=== PATIENT | female | born 1955 | race Caucasian/White ===

== ENCOUNTER 2024-12-15 17:56 | Observation (INO) | payer BC, SELFPAY ==
[2024-12-15] VITALS (9 sets, daily range): BP systolic 100–152; BP diastolic 55–83; PULSE 66–96; RESP 16–26; TEMP 36.6–36.8; O2SAT 97–100; BMI 24.3
--- NOTE | ~2024-12-15 | XR_ITS ---
XR chest 1V portable Ordering provider: Dameon Pitt III, DO History: 69 years Female with . sob . Comparison: None. FINDINGS: MEDIASTINUM: The cardiac silhouette is not enlarged. Congested joanna. LUNGS: No effusions or pneumothorax. Opacification the left lung base suggestive of atelectasis versu s pneumonia. Underlying fibrotic changes. OTHER: No free air under the diaphragm. Severe osteoarthritic changes of the right shoulder. Degenera tive spine. IMPRESSION: Left basilar atelectasis versus pneumonia. Reviewed, dictated and finalized at location A.
--- NOTE | ~2024-12-15 | CT_ITS ---
CT diagnostic chest wo con Ordering provider: Earl Rodriguez MD History: 69 years Female with . Eval PNA . Comparison: None. Technique: CT chest without IV contrast. Radiation reduction technique utilized.The dose-length product was 165.21 mGy-cm. FINDINGS: VISUALIZED THORACIC INLET: Normal. MEDIASTINUM: Aorta/coronary arteries: Mild atheromatous disease. Ascending aorta measures 4 seen. Heart/other: The heart is slightly enlarged. Lymph nodes: Precarinal lymph nodes are seen with the largest measures 1.6 cm. LUNGS: Emphysematous changes seen in the upper and lower lobes. Superimpose pneumonitis in the lower lobes is not excluded. No pulmonary nodules or masses. No effusions. No pneumothorax. VISUALIZED UPPER ABDOMEN: Adenoma in the left adrenal gland is seen measuring 1.1 cm. No follow-up ad vised unless clinically warranted. Thickened wall of the stomach. Otherwise, the visualized upper abd omen is normal. MUSCULOSKELETAL: Soft tissues: The superficial soft tissues are normal. Bones: Dextroscoliosis. Age appropriate degenerative changes of the spine. Healing rib fractures are seen in the right lower thorax. Severe osteoarthritic changes of the right shoulder. IMPRESSION: 1. Fibrotic changes of the lungs in the lower and upper lobes. Possibility of superimposed pneumonit is is not excluded in the lower lobes. Clinical correlation and follow-up advised. 2. Mediastinal lymphadenopathy. 3. Healing fractures in the right lower thorax. Reviewed, dictated and finalized at location A. IMPRESSION: 1. Fibrotic changes of the lungs in the lower and upper lobes. Possibility of superimposed pneumonitis is not excluded in the lower lobes. Clinical correlati on and follow-up advised. 2. Mediastinal lymphadenopathy. 3. Healing fractures in the right lower thorax.
--- NOTE | 2024-12-15 18:00 | ECG_ITS ---
Test Date: 2024-12-15 18:12:45 Measurements Intervals [place] Rate: 65 P: 38 MO: 196 QRS: -31 QRSD: 102 T: -3 QT: 428 QTc: 446 Interpretive Statements SINUS RHYTHM LEFT AXIS DEVIATION LEFT VENTRICULAR HYPERTROPHY BORDERLINE T WAVE ABNORMALITY- INFERIOR LEADS BASELINE ARTIFACT- I, II, AVR, AVL, AVF, V1-V6 BORDERLINE ECG No previous ECG available for comparison Electronically Signed On 12-15-2024 20:16:01 CDT by Nile Brandon D.O.
[2024-12-15 18:21] LABS: Basophils Absolute Auto 0.1 K/mm3 (0.0-0.1); Basophils Percent Auto 0.3 % (0.2-1.2); Hematocrit 33.8 % (37.0-47.0); Hemoglobin 10.6 g/dL (12.0-15.0); Immature Granulocyte Absolute 0.05 K/mm3 (0.00-0.031); Immature Granulocyte Percent A 0.3 % (0-0.5); Lymphocytes Absolute Auto 2.12 K/mm3 (0.9-3.2); Lymphocytes Percent Auto 14.7 % (18.3-44.2); Mean Corpuscular HGB Conc 31.4 g/dl (32-36); Mean Corpuscular Hemoglobin 31.3 pg (26-34); Mean Corpuscular Volume 99.7 fl (80-100); Mean Platelet Volume 10.4 fl (7.4-10.4); Monocytes Absolute Auto 1.3 K/mm3 (0.1-0.6); Monocytes Percent Auto 9.3 % (2.6-8.5); Neutrophils Absolute Auto 10.8 K/mm3 (1.3-6.7); Neutrophils Percent Auto 75.4 % (45.5-73.1); Platelet Count Result 290 k/mm3 (150-375); Red Blood Count 3.39 M/mm3 (4.2-5.4); Red Cell Distribution Width 12.5 % (11.5-14.5); White Blood Count 14.4 K/mm3 (4.5-10.0)
[2024-12-15 18:28] LABS: Alanine Aminotransferase 18 U/L (6-35); Albumin Level 4.5 g/dL (3.5-5.1); Alkaline Phosphatase 77 U/L (38-126); Anion Gap 12 mmol/L (4-12); Aspartate Amino Transferase 33 U/L (14-36); Bilirubin,Total 1.1 mg/dL (0.2-1.3); Blood Urea Nitrogen 16 mg/dL (7-17); Calcium 9.1 mg/dL (8.4-10.2); Carbon Dioxide 25 mmol/L (22-30); Chloride 97 mmol/L (98-107); Estimated CRCL calculation 52 ml/min; Estimated Glomerular Filt Rate 59; Glucose 109 mg/dL (65-110); Potassium 3.8 mmol/L (3.4-5.0); Sodium 134 mmol/L (137-145); Total Protein 8.7 g/dL (6.3-8.2)
--- OUTSIDE RECORDS SUMMARY | 2024-12-15 18:28 | XMS_ITS | Encounter Summary ---
Author Organization [facility] Address [address] [place] [address] Phone Care Team Providers Care Business Records Manager Name Role Phone Butch Linnea KOO Primary Care Provider [phone] Encounter Details Date Type Department Care Team (Late st Contact Info) Description 02/18/2024 Refill [facility] [address] [place] [address] Karri Womack MD [address] [place] [address] Social History Tobacco Use Types Packs/Day Years Used Date Smoking Tobacco: Every Day Cigarettes 1 20 Passive Smoke Exposure: Never Smokeless Tobacco: Never Alcohol Use Standard Drinks/Week Comments Yes 5 (1 standard drink = 0.6 oz pur e alcohol) Comments Unknown Sex and Gender Information Value Date Recorded Sex Assigned at Not on file Legal Sex Female 8:22 AM [employer] Gender Identity Not on file Sexual Orientation Not on file documented as of this encounter Miscellaneous Notes * Telephone Encounter - Karri Womack MD - 02/18/2024 1:17 PM CDT Enbrel Rx sent. * Telephone Encounter - Lyssa Aguayo - 02/18/2024 11:22 AM CDT Enbrel was approved by [employer] from 01/19/24-08/16/24. [employer] Insurance Auth # [id number] . Added information to referral entry. Added approval dates to med list. Started new postponed message. Called pt to discuss approval. Gave phone number for [facility] and instructions on putting medicationin door of refrigerator when received. Pt will call for appt or bring injection to her appt next week if she has it. Let pt know that pharmacy can help set her up with a copay card if she needs it. Medication queued up for provider to sign * Telephone Encounter - Lyssa Aguayo - 02/18/2024 9:49 AM CDT Submitted PA request for ENBREL through Cover My Meds [place]: [email or web address] Questions populated and submitted Pending response * Telephone Encounter - Karri Womack MD - 02/18/2024 9:27 AM CDT Please get PA for Enbrel (or any other TNFi such as adalimumab). Diagnosis: Rheumatoid arthritis Current treatment: Methotrexate, narcotic pain medications Previous treatments: Hydroxychloroquine, prednisone. documented in this encounter Plan of Treatment Not on file documented as of this encounter Visit Diagnoses Diagnosis Rheumatoid arthritis involving multiple sites with positive rheumatoid factor ([facility])- Primary documented in this encounter Care Teams Business Records Manager Relationship Specialty Start Date End Date Linnea Rae APRN FORMERLY [facility], [facility], [facility] [address] [place] [address] PCP - General Family Medicine 09/13/23 documented as of this encounter
--- OUTSIDE RECORDS SUMMARY | 2024-12-15 18:28 | XMS_ITS | Referral Summary ---
Author Organization [address] Address [address] [place] [id number] Care Team Providers Care Meal Grinder Tender Name Role Phone Unknown, Notinfile Primary Care Provider Unavail able Encounters Date Type Department Care Team Description 12/15/2024 5:00 PM CDT Office Visit [facility] at [address] [address] Jenelle Lazaro NP Chest congestion (Primary Dx) from Last 3 Months Allergies Active Allergy Reactions Criticality Noted Date Comments Latex Hives,Rash High 02/18/2024 Medications albuterol HFA (PROVENTIL HFA,VENTOLIN HFA,PROAIR HFA) 90 mcg/actuation inhaler 5 Active Airsupra 90-80 mcg/actuation HFA aerosol inhaler 2 PUFFS EVERY 4 HOURS (MAX OF 12 PUFFS IN 24 HOURS) 5 Active aspirin 81 mg chewable tablet Take 1 tablet (81 mg total) by mouth daily Active atorvastatin (LIPITOR) 40 mg tablet Take 1 tablet (40 mg total) by mouth nightly Active Breztri Aerosphere 160-9-4.8 mcg/actuation inhaler 2 PUFFS TWICE DAILY 5 Active busPIRone (BUSPAR) 10 mg tablet Take 1 tablet (10 mg total) by mouth daily 5 Active ergocalciferol (VITAMIN D) 50,000 unit capsule Take 1.25 mg by mouth once a week Active cholecalciferol (VITAMIN D-3) 50,000 unit capsule Take 1 capsule (50,000 Units total) by mouth 4 Active estradioL (ESTRACE) 1 mg tablet Take 1 tablet (1 mg total) by mouth Active estrogens, conjugated, (PREMARIN) 0.3 mg tablet Take 1 tablet (0.3 mg total) by mouth daily Active EnbreL Mini 50 mg/mL (1 mL) cartridge INJECT 50 MG UNDER THE SKIN EVERY 7 DAYS 5 Active gabapentin (NEURONTIN) 300 mg capsule Take 1 capsule (300 mg total) by mouth 3 (three) times a day 3 Active tiZANidine (ZANAFLEX) 4 mg tablet Take 1 tablet (4 mg total) by mouth nightly Active levothyroxine (SYNTHROID) 175 mcg tablet Take 1 tablet (175 mcg total) by mouth real estate loan officer before breakfast 4 Active hydroCHLOROthia zide (HYDRODIURIL) 25 mg tablet Take 1 tablet (25 mg total) by mouth real estate loan officer before breakfast 4 Active sucralfate (CARAFATE) 1 gram tablet Take 1 tablet (1 g total) by mouth 2 (two) times a day 5 Active metoprolol (LOPRESSOR) 100 mg tablet Take 1.5 tablets (150 mg total) by mouth 2 (two) times a day Active losartan (COZAAR) 25 mg tablet Take 2 tablets (50 mg total) by mouth 2 (two) times a day 4 Active furosemide (LASIX) 20 mg tablet Take 0.5 tablets (10 mg total) by mouth daily Active Active Problems No known active problems Social History Tobacco Use Types Packs/Day Years Used Date Smoking Tobacco: Never Assessed Comments Unknown Sex and Gender Information Value Date Recorded Sex Assigned at Not on file Legal Sex Female 3:31 PM CDT Gender Identity Not on file Sexual Orientation Not on file Last Filed Vital Signs Vital Sign Reading Time Taken Comments Blood Pressure 133/72 12/15/2024 5:19 PM CDT Pulse 74 12/15/2024 5:19 PM CDT Temperature 36.9 C (98.4 F) 12/15/2024 5:19 PM CDT Respiratory Rate 20 12/15/2024 5:19 PM CDT Oxygen Saturation 98% 12/15/2024 5:19 PM CDT Inhaled Oxygen Concentration - - Weight - - Height - - Body Mass Index - - Plan of Treatment Not on file Procedures Procedure Name Priority Date/Time Associated Diagnosis Comments POC INFLUENZA A/B, COVID-19 ANTIGEN Routine 12/15/2024 5:38 PM CDT Chest congestion from Last 3 Months Results * POC Influenza A/B, COVID-19 antigen (12/15/2024 5:38 PM CDT) Influenza A Ag, POC Negative Negative [facility] Influenza B Ag, POC Negative Negative [facility] COVID-19 Ag POC Presumptive Negative Presumptive Negative, Invalid [facility] Nasal 12/15/2024 5:38 PM CDT us Jenelle Lazaro NP POINT OF CARE TEST ORDERABLES F inal Result [facility] [address] [place] [address], [facility] from Last 3 Months Insurance [employer] ACCESS Care Teams Meal Grinder Tender Relationship Specialty Start Date End Date Unknown, Notinfile PCP - General 12/15/24
--- OUTSIDE RECORDS SUMMARY | 2024-12-15 18:28 | XMS_ITS | Clinical Summary ---
Author Organization [address] Address [address] [place] [id number] Care Team Providers Care Energy Project Manager Name Role Phone Unknown, Notinfile Primary Care Provider Unavail able Allergies Active Allergy Reactions Criticality Noted Date [...] 1 tablet (175 mcg total) by mouth pet food deboner before breakfast 4 Active hydroCHLOROthia zide (HYDRODIURIL) 25 mg tablet Take 1 tablet (25 mg total) by mouth pet food deboner before breakfast 4 Active sucralfate (CARAFATE) 1 [...] Active Active Problems No known active problems Encounters Date Type Department Care Team Description 12/15/2024 5:00 PM CDT Office Visit [facility] at [address] [address] Jenelle Lazaro NP Chest congestion (Primary Dx) from Last 3 Months Social History Tobacco Use Types Packs/Day Years Used Date Smoking Tobacco: Never Assessed Comments Unknown Sex and Gender Information Value Date Recorded Sex Assigned at Not on file Legal Sex Female 3:31 PM CDT Gender Identity Not on file Sexual Orientation Not on file Obstetrics History Last Filed Vital Signs Vital Sign Reading [...] Mass Index - - Plan of Treatment Health Maintenance Due Date Last Done Comments Colon Cancer Screening-Colonoscopy 1955 Depression Screening 1955 Fall Risk Assessment 1955 Hepatitis C Screening 1955 DTaP/Tdap/Td Vaccine (1 - Tdap) 02/10/1968 Hepatitis B Screening 1975 Pneumococcal vaccine 65+ (1 of 1 - PCV) 2007 Zoster Vaccine (1 of 2) 2007 Osteoporosis Screening-Bone Density Scan 12/26/2020 12/26/2018 Breast Cancer Screening-Mammogram 05/25/2021 020, 05/25/2020 Well Visit 65+ 2022 Influenza Vaccine (Season Ended) 2025 08/17/19 17 Procedures Procedure Name Priority Date/Time Associated Diagnosis Comments POC INFLUENZA A/B, COVID-19 ANTIGEN Routine 12/15/2024 5:38 PM CDT Chest congestion from Last 3 Months Results * POC Influenza A/B, COVID-19 antigen (12/15/2024 5:38 PM CDT) Influenza A Ag, POC Negative Negative [facility] Influenza B Ag, POC Negative Negative [facility] COVID-19 Ag POC Presumptive Negative Presumptive Negative, Invalid [facility] Nasal 12/15/2024 5:38 PM CDT us Jenelle Lazaro NP POINT OF CARE TEST ORDERABLES F inal Result [facility] [address] [place] [address], [facility] from Last 3 Months Insurance [employer] Care Teams Energy Project Manager Relationship Specialty Start Date End Date Unknown, Notinfile PCP - General 12/15/24
--- OUTSIDE RECORDS SUMMARY | 2024-12-15 18:28 | XMS_ITS ---
Author Organization [facility] Care Team Providers Care Army Ranger Name Role Phone PRANAY HAYS Unavailable Unavailable GORGE PLATT Unavailable Unavailable DANUTA BLAND Unavailable Unavailable Allergies and adverse reactions No Known Allergies Care Team Name Role Address Phone Organization Dates DANUTA BLAND PCP [address] [facility] [address], [place], [address], [place] (Office): [facility] 11/04/2018 - 11/25/2018 PRANAY HAYS [address] [place], [address], [facility] (Office): : [facility] 11/04/2018 - 11/25/2018 GORGE PLATT [address] [place], [address], [facility] (Office): : [facility] 11/04/2018 - 11/25/2018 Immunizations Immunization Status Vaccine Details Vaccine Code CodeSystem Date Notes Influenza cancelled Influenza, high-dose, split virus, quadrivalent, injectable, preservative free 197 CVX created date: 11/07/2018 consent date: 11/07/2018 Pneumovax Dose 1 cancelled cre ated date: 11/07/2018 consent date: 11/07/2018 Eligible but prefers to not get this vaccine Pneumovax 13 (PCV13) cancelled created date: 11/07/2018 consent date: 11/07/2018 Eligible but prefers to not get this vaccine Mental Status Section Date Assessment Total Score Description 11/25/2018 BIMS 13 cognitively int act CAM 0 No delirium ind icated PHQ-9 03 minimal depress ion 11/17/2018 BIMS 15 cognitively int act CAM 0 No delirium ind icated PHQ-9 05 mild depression Problems Problem # Description Date of onset Resolved Date Code CodeSystem Concern Status 1 DIFFICULTY IN WALKIN G, NOT ELSEWHERE CLASSIFIED [address] active 2 DISPLACED INTERTROCHANTERIC FRACTURE OF LEFT FEMUR, SUBSEQUENT ENCOUNTER FOR CLOSED FRACTURE WITH ROUTINE HEALING [address] active 3 ESSENTIAL (PRIMARY) HYPERTENSION [address] active 4 GASTRO-ESOPHAGEAL REFLUX DISEASE WITHOUT ESOPHAGITIS [address] active 5 HYPOTHYROIDISM, UNSPECIFIED [address] active 6 INSOMNIA, UNSPECIFIED [address] active 7 MUSCLE WEAKNESS (GENERALIZED) [address] active 8 OBSTRUCTIVE SLEEP APNEA (ADULT) (PEDIATRIC) [address] active 9 PAIN IN LEFT HIP [address] active 10 PAIN IN LEFT THIGH [address] active Reason for Referral No Reasons for Referral Entered Social History Social History Observation Description Start Date End Date Code Code System Current Smoking Status Tobacco smoking consumption unknown 360399555 SNOMED CT Sex Assigned At Female 1955 14258-0 [facility] Gender Identity Vital Signs Code Code System Vitals Name Values and Units Timing Information 9279-1 LOINC Respiratory Rate Value=16.0 Units=/m in 11/25/2018 8462-4 LOINC Blood Pressure-Diastolic Value=89 Un its=mmHg 11/25/2018 8480-6 LOINC Blood Pressure-Systolic Avkqx=745 Un its=mmHg 11/25/2018 8310-5 LOINC Body Temperature Value=98.2 Units= F 11/25/2018 8867-4 [facility] Heart rate Value=70.0 Units=/min 42726-6 [facility] Pain Level Value=1.0 11/25/2018 06438-6 [facility] O2 % BldC Oximetry Value=97.0 Units= % 11/18/2018 55751-5 LOINC Weight Veoha=025.0 Units=Lbs 02/2019 8302-2 [facility] Height Value=67.5 Units=Inches 11/04/2018
--- OUTSIDE RECORDS SUMMARY | 2024-12-15 18:28 | XMS_ITS | Encounter Summary ---
Author Organization [facility] Healthcare Address [address] [place] [address] Care Team Providers Care Fibre Optic Cable Splicer Name Role Phone Unknown, Notinfile Primary Care Provider Unavail able Reason for Visit * Reason Comments chest congestion Cough, NVD, pain in pancreas, fatigue for four days. Encounter Details Date Type Department Care Team (Late st Contact Info) Description 12/15/2024 5:00 PM CDT Office Visit [facility] at [address] [address] Jenelle Lazaro, CARMINE [address] [place] [address] [address] [place] [address] Chest congestion (Primary Dx) Social History Tobacco Use Types Packs/Day Years Used Date Smoking Tobacco: Never Assessed Comments Unknown Sex and Gender Information Value Date Recorded Sex Assigned at Not on file Legal Sex Female 3:31 PM CDT Gender Identity Not on file Sexual Orientation Not on file documented as of this encounter Last Filed Vital Signs Vital Sign Reading Time Taken Comments Blood Pressure 133/72 12/15/2024 5:19 PM CDT Pulse 74 12/15/2024 5:19 PM CDT Temperature 36.9 C (98.4 F) 12/15/2024 5:19 PM CDT Respiratory Rate 20 12/15/2024 5:19 PM CDT Oxygen Saturation 98% 12/15/2024 5:19 PM CDT Inhaled Oxygen Concentration - - Weight - - Height - - Body Mass Index - - documented in this encounter Plan of Treatment Not on file documented as of this encounter Procedures Procedure Name Priority Date/Time Associated Diagnosis Comments POC INFLUENZA A/B, COVID-19 ANTIGEN Routine 12/15/2024 5:38 PM CDT Chest congestion documented in this encounter Results * POC Influenza A/B, COVID-19 antigen (12/15/2024 5:38 PM CDT) Influenza A Ag, POC Negative Negative [facility] Influenza B Ag, POC Negative Negative [facility] COVID-19 Ag POC Presumptive Negative Presumptive Negative, Invalid [facility] Nasal 12/15/2024 5:38 PM CDT Jenelle Lazaro NP POINT OF CARE TEST ORDERABLES F inal Result [facility] [address] documented in this encounter Visit Diagnoses Diagnosis Chest congestion- Primary Other symptoms involving respiratory system and chest documented in this encounter Historical Medications * This list may reflect changes made after this encounter. furosemide (LASIX) 20 mg tablet Take 0.5 tablets (10 mg total) by mouth daily losartan (COZAAR) 25 mg tablet Take 2 tablets (50 mg total) by mouth 2 (two) times a day 01/22/2024 metoprolol (LOPRESSOR) 100 mg tablet Take 1.5 tablets (150 mg total) by mouth 2 (two) times a day sucralfate (CARAFATE) 1 gram tablet Take 1 tablet (1 g total) by mouth 2 (two) times a day 11/25/2024 hydroCHLOROthiaz lisa (HYDRODIURIL) 25 mg tablet Take 1 tablet (25 mg total) by mouth range rider before breakfast 01/22/2024 levothyroxine (SYNTHROID) 175 mcg tablet Take 1 tablet (175 mcg total) by mouth range rider before breakfast 01/22/2024 tiZANidine (ZANAFLEX) 4 mg tablet Take 1 tablet (4 mg total) by mouth nightly gabapentin (NEURONTIN) 300 mg capsule Take 1 capsule (300 mg total) by mouth 3 (three) times a day 03/27/2023 EnbreL Mini 50 mg/mL (1 mL) cartridge INJECT 50 MG UNDER THE SKIN EVERY 7 DAYS 10/26/2024 estrogens, conjugated, (PREMARIN) 0.3 mg tablet Take 1 tablet (0.3 mg total) by mouth daily estradioL (ESTRACE) 1 mg tablet Take 1 tablet (1 mg total) by mouth cholecalciferol (VITAMIN D-3) 50,000 unit capsule Take 1 capsule (50,000 Units total) by mouth 01/22/2024 ergocalciferol (VITAMIN D) 50,000 unit capsule Take 1.25 mg by mouth once a week busPIRone (BUSPAR) 10 mg tablet Take 1 tablet (10 mg total) by mouth daily 11/25/2024 Breztri Aerosphere 160-9-4.8 mcg/actuation inhaler 2 PUFFS TWICE DAILY 10/28/2024 atorvastatin (LIPITOR) 40 mg tablet Take 1 tablet (40 mg total) by mouth nightly aspirin 81 mg chewable tablet Take 1 tablet (81 mg total) by mouth daily Airsupra 90-80 mcg/actuation HFA aerosol inhaler 2 PUFFS EVERY 4 HOURS (MAX OF 12 PUFFS IN 24 HOURS) 10/28/2024 albuterol HFA (PROVENTIL HFA,VENTOLIN HFA,PROAIR HFA) 90 mcg/actuation inhaler 10/07/2024 added in this encounter Care Teams Fibre Optic Cable Splicer Relationship Specialty Start Date End Date Unknown, Notinfile PCP - General 12/15/24 documented as of this encounter
--- OUTSIDE RECORDS SUMMARY | 2024-12-15 18:28 | XMS_ITS | Clinical Summary ---
Author Organization [facility] Address [address] [place] [address] Phone Care Team Providers Care Loss Prevention Investigator Name Role Phone Butch Linnea KOO Primary Care Provider [phone] Allergies Active Allergy Reactions Criticality Noted Date Comments Latex Hives,Rash High 02/18/2024 Medications aspirin enteric coated 81 mg tablet, delayed release Take 81 mg by mouth every day 11/20/2023 Active buprenorphine HCL (SUBUTEX) [address] 8 mg under the tongue 2 (two) times daily Active cholecalciferol (VITAMIN D3) 50,000 unit capsule Take 50,000 Units by mouth 01/22/2024 Active estradioL (ESTRACE) 1 mg tablet Take 1 mg by mouth every day Active gabapentin (NEURONTIN) 300 mg capsule Take 300 mg by mouth 3 (three) times daily Active hydroCHLOROthia zide 25 mg tablet Take 25 mg by mouth every day 01/22/2024 Active SYNTHROID 175 mcg tablet Take 175 mcg by mouth every day 01/22/2024 Active losartan (COZAAR) 25 mg tablet Take 25 mg by mouth every day 01/22/2024 Active metoprolol tartrate (LOPRESSOR) 100 mg tablet Take 100 mg by mouth 2 (two) times daily Active omeprazole 20 mg delayed release capsule Take 20 mg by mouth every morning 02/12/2024 Active ondansetron 4 mg rapid dissolve tablet Take 4 mg by mouth every 6 hours as needed 12/14/2023 Active tiZANidine (ZANAFLEX) 4 mg tabletIndicatio ns:Fibromyalgia Take 1 tablet (4 mg total) by mouth daily at bedtime 90 tablet 1 05/20/2024 Active ENBREL MINI 50 mg/mL (1 mL) cartridgeIndica tions:Rheumatoi d arthritis involving multiple sites with positive rheumatoid factor ([facility] INJECT 50 MG UNDER THE SKIN EVERY 7 DAYS 12 mL 10/26/2024 Active Active Problems No known active problems Encounters Date Type Department Care Team Description 11/12/2024 1:15 PM CDT Lab Only [facility] [address] [place] [address] Rob Boyer MD Rheumatoid arthritis involving multiple sites with positive rheumatoid factor ([facility] 10/26/2024 Refill [facility] [address] [place] [address] Karri Womack MD Refill Request 10/05/2024 Refill [facility] [address] [place] [address] Karri Womack MD Refill Request 09/28/2024 Refill [facility] [address] [place], [place] [address] Karri Womack MD New Med Request 09/28/2024 Refill [facility] [address] [place] [id number] Karri Womack MD New Med Request from Last 3 Months Family History Medical History Relation Name Comments Lung Cancer Father Heart Mother Stroke Mother Relation Name Status Comments Father Mother Social History Tobacco Use Types Packs/Day Years Used Date Smoking Tobacco: Every Day Cigarettes 1 20 Passive Smoke Exposure: Never Smokeless Tobacco: Never Tobacco Cessation:Ready to Q uit: Not Asked; Counseling Given: Not Answered Alcohol Use Standard Drinks/Week Comments Yes 5 (1 standard drink = 0.6 oz pur e alcohol) Comments Unknown Sex and Gender Information Value Date Recorded Sex Assigned at Not on file Legal Sex Female 8:22 AM FINISHING OPERATOR Gender Identity Not on file Sexual Orientation Not on file Last Filed Vital Signs Vital Sign Reading Time Taken Comments Blood Pressure 186/97 05/20/2024 1:27 PM FINISHING OPERATOR Pulse 70 05/20/2024 1:27 PM FINISHING OPERATOR Temperature 36.5 C (97.7 F) 03/13/2024 1:10 PM CDT Respiratory Rate - - Oxygen Saturation 96% 05/20/2024 1:27 PM FINISHING OPERATOR Inhaled Oxygen Concentration - - Weight 76.8 kg (169 lb 6.4 oz) 05/20/2024 1:27 P M FINISHING OPERATOR Height 172.7 cm (5' 8) 02/18/2024 7:58 AM CDT Body Mass Index 25.76 02/18/2024 7:58 AM CDT Plan of Treatment Health Maintenance Due Date Last Done Comments Diagnostic Colonoscopy 1957 Depression Screening 1969 DTaP/Tdap/Td Vaccines (1 - Tdap) 02/10/1976 Hepatitis A Vaccines (1 of 2 - Risk 2-dose series) 02/10/1976 Pneumococcal Vaccines (50+) (1 of 2 - PCV) 02/10/1976 CT Colonography 2002 Colorectal Cancer Screening 2002 FIT-DNA (Cologuard) 2002 Fecal Immunochemical Testing (FIT) 2002 Fecal Occult Blood (FOBT) 2002 Flexible Sigmoidoscopy 2002 Screening Colonoscopy 2002 HCPOA Document on File 2007 Zoster (Shingles) Vaccine (1 of 2) 2007 Hepatitis B Vaccines (1 of 3 - Risk 3-dose series) 2017 RSV Vaccine (60+/) (1 - Risk 60-74 years 1-dose series) 2017 Breast Cancer Screening 05/25/2021 05/25/20 20, 12/26/2018 Fall Screening 2022 COVID-19 Vaccine (1 - 2023-2 5 season) [address] Scan for Lung Cancer Screening 04/25/2024 04/25/2023, 05/12/2020, 02/19/2020 Influenza Vaccine (Season Ended) 2025 Screening for Diabetes 11/13/2027 , 05/14/2024, 02/18/2024 HIB Vaccines Aged Out No longer eligi ble based on patient's age to complete this topic HPV Vaccines Aged Out No longer eligi ble based on patient's age to complete this topic IPV Vaccines Aged Out No longer eligi ble based on patient's age to complete this topic Meningococcal B Vaccine Aged Out No l onger eligible based on patient's age to complete this topic Meningococcal Vaccine (ACWY) Aged Out No longer eligible based on patient's age to complete this topic Rotavirus Vaccines Aged Out No longer eligible based on patient's age to complete this topic Procedures Procedure Name Priority Date/Time Associated Diagnosis Comments COMPREHENSIVE METABOLIC PANEL Routine 11/12/2024 1:15 PM CDT Rheumatoid arthritis involving multiple sites with positive rheumatoid factor ([facility]) from Last 3 Months Results * (ABNORMAL) COMPREHENSIVE METABOLIC PANEL (11/12/2024 1:15 PM CDT) CALCIUM 9.4 8.9 - 10.6 mg/dL [facility] GLUCOSE 97 74 - 100 mg/dL [facility] BUN 29(H) 10 - 20 mg/dL [facility] CREATININE 1.22(H) 0.55 - 1.02 mg/dL [facility] TOTAL PROTEIN 8.1(H) 6.0 - 8.0 g/dL [facility] ALBUMIN 4.0 3.4 - 4.8 g/dL [facility] BILIRUBIN, TOTAL 0.8 0.2 - 1.2 mg/dL [facility] AST 39 9 - 43 U/L [facility] ALT 18 0 - 34 U/L [facility] ALKALINE PHOSPHATASE 52 40 - 150 U/L [facility] SODIUM 139 136 - 145 mmol/L [facility] POTASSIUM 3.3(L) 3.5 - 5.1 mmol/L [facility] CHLORIDE 101 98 - 107 mmol/L [facility] CO2 27.0 22.0 - 29.0 mmol/L [facility] GFR: CKD-EPI 202 CREAT 48 arbitrary unit [facility] Comment: eGFR of 90 or higher is in the normal range eGFR of 60-89 may mean early-stage kidney disease eGFR of 15-59 may mean kidney disease eGFR below 15 may mean kidney failure NOTE: The GFR estimate is reported in ml/min/1.73 square meters. Effective 12/06/22 the reported GFR estimate is calculated using the CKD-EPI 2020 equation and is intended only for the assessment of chronic kidney disease. [facility], [address] [place] [id number] 11/12/2024 1:15 PM CDT 11/12/2024 7:34 PM CDT Karri Womack MD HEM/CHEM/IMMUN-BLOOD Final Result Performing Organization Address City/State/[facility] Co de Phone Number [facility] [address] [place] [address], [place] from Last 3 Months Insurance [employer] Care Teams Loss Prevention Investigator Relationship Specialty Start Date End Date Linnea Rae APRN [facility] [address] [place] [address] PCP - General Family Medicine 09/13/23
--- NOTE | 2024-12-15 18:56 | ED_ITS ---
HPI - General Adult General Chief complaint: Shortness of Breath/Dyspnea Stated complaint: SOB I think I have pneumonia Time Seen by Provider: 12/15/24 18:17 History of Present Illness HPI narrative: This is a 69-year-old female history of COPD presenting for difficulty breathing. Patient says over the last week she has recently moved into the area and is living with her children. She forgot her inhalers and has not been taking them. Several days ago she started developed productive cough and worsening shortness of breath and chest tightness. She denies fevers chills, nausea vomiting diarrhea or lower extremity edema. Patient has history of recurrent pneumonia. Related Data Allergies Allergy/AdvReac Type Severity Reaction Status Date / Time No Known Allergies Allergy Verified 12/15/24 17:58 Exam 2 Narrative: APPEARANCE: No apparent distress. Head: atraumatic. EYES: EOMI, NOSE: Atraumatic NECK: Trachea midline RESPIRATORY: tachypneic, diffuse expiratory wheezing and scattered rhonchi CARDIOVASCULAR: RRR, no peripheral edema ABDOMINAL: Non-distended soft nontender MUSCULOSKELETAl: No obvious deformities NEURO: Alert. Moving 4/4 extremities SKIN:: Warm, dry. Normal color PSYCHIATRIC: Normal affect Course Vital Signs Vital signs: Vital Signs Temperature 98.2 F 12/15/24 18:02 Pulse Rate 73 12/15/24 18:02 Respiratory Rate 18 12/15/24 18:02 Blood Pressure 144/82 H 12/15/24 18:02 Pulse Oximetry 98 12/15/24 18:02 Oxygen Delivery Room Air 12/15/24 18:02 Temperature 98.2 F 12/15/24 18:02 Pulse Rate 92 12/15/24 20:50 Respiratory Rate 18 12/15/24 20:50 Blood Pressure 152/73 H 12/15/24 20:45 Pulse Oximetry 100 12/15/24 20:45 Oxygen Delivery Room Air 12/15/24 18:02 Medical Decision Making [facility] Narrative Medical decision making narrative: -Course: 69-year-old female with COPD recurrent pneumonia presenting for difficulty breathing productive cough after not taking her inhalers for 1 week. On exam her lungs have diffuse wheezing and rhonchi. Given an hour long breathing treatment and steroids for COPD. Workup significant for white count of 14.4. Viral swabs negative. Chest x-ray showed left basilar atelectasis versus pneumonia. CT chest as interpreted by myself shows COPD and diffuse ground-glass opacities. Patient will be started on antibiotics to cover pneumonia. Patient is still tachypneic tachypneic at rest. She will be admitted hospital for COPD exacerbation secondary to pneumonia and medication non-compliance. -DDX includes but is not limited to: COPD, pneumonia, viral syndrome medication noncompliance Independent EKG interpretation: Rhythm [sinus], Rate [65], Watson -[left], RI -[normal], QRS [narrow], QTC [normal], T waves -[negative for concerning inversions], ST Segments - [Negative for concerning elevations] Final interpretations: [Normal Sinus Rhythm] Vital Signs Vital Signs: Vital Signs Temperature 98.2 F 12/15/24 18:02 Pulse Rate 73 12/15/24 18:02 Respiratory Rate 18 12/15/24 18:02 Blood Pressure 144/82 H 12/15/24 18:02 Pulse Oximetry 98 12/15/24 18:02 Oxygen Delivery Room Air 12/15/24 18:02 Temperature 98.2 F 12/15/24 18:02 Pulse Rate 92 12/15/24 20:50 Respiratory Rate 18 12/15/24 20:50 Blood Pressure 152/73 H 12/15/24 20:45 Pulse Oximetry 100 12/15/24 20:45 Oxygen Delivery Room Air 12/15/24 18:02 Lab Data 12/15/24 18:13 12/15/24 18:13 Labs: Lab Results 12/15/24 12/15/24 Range/Units 18:13 18:58 WBC 14.4 H (4.5-10.0) K/mm3 RBC 3.39 L (4.2-5.4) M/mm3 Hgb 10.6 L (12.0-15.0) g/dL Hct 33.8 L (37.0-47.0) % MCV 99.7 (80-100) fl MCH 31.3 (26-34) pg MCHC 31.4 L (32-36) g/dl RDW 12.5 (11.5-14.5) % Plt Count 290 (150-375) k/mm3 MPV 10.4 (7.4-10.4) fl Immature Gran % (Auto) 0.3 (0-0.5) % Neut % (Auto) 75.4 H (45.5-73.1) % Lymph % (Auto) 14.7 L (18.3-44.2) % Bosque % (Auto) 9.3 H (2.6-8.5) % Eos % (Auto) 0.0 (0-4.4) % Baso % (Auto) 0.3 (0.2-1.2) % Lymph # (Auto) 2.12 (0.9-3.2) K/mm3 Bosque # (Auto) 1.3 H (0.1-0.6) K/mm3 Eos # (Auto) 0.0 (0-0.3) K/mm3 Baso # (Auto) 0.1 (0.0-0.1) K/mm3 Abs Immat Gran (auto) 0.05 H (0.00-0.031) K/mm3 Absolute Neuts (auto) 10.8 H (1.3-6.7) K/mm3 Absolute Nucleated RBC 0.000 (0.0-0.012) K/mm3 Nucleated RBC % 0.0 (0.0-0.2) % Sodium 134 L (137-145) mmol/L Potassium 3.8 (3.4-5.0) mmol/L Chloride 97 L (98-107) mmol/L Carbon Dioxide 25 (22-30) mmol/L Anion Gap 12 (4-12) mmol/L BUN 16 (7-17) mg/dL Creatinine 0.94 (0.7-1.0) mg/dL Estim Creat Clear Calc 52 ml/min Estimated GFR 59 (59 - ) Glucose 109 (65-110) mg/dL Calcium 9.1 (8.4-10.2) mg/dL Total Bilirubin 1.1 (0.2-1.3) mg/dL AST 33 (14-36) U/L ALT 18 (6-35) U/L Alkaline Phosphatase 77 (38-126) U/L Total Protein 8.7 H (6.3-8.2) g/dL Albumin 4.5 (3.5-5.1) g/dL Influenza A (RT-PCR) Negative (Negative) Influenza B (RT-PCR) Negative (Negative) RSV (RT-PCR) Negative (Negative) SARS-CoV-2 RNA (RT-PCR) Negative (Negative) ABG Data ABG results: 06/10/25 19:22 O2 Liters/Min Not Reportable Discharge Plan Discharge Clinical Impression: COPD (chronic obstructive pulmonary disease), PNA (pneumonia) Patient Disposition: Still a Patient Condition: Stable Patient Language: Kazakh Follow-up/Referrals: UNKNOWN,DOCTOR [Primary Care Provider] -
[2024-12-15] MEDS: dexAMETHasone SOD PHOS INJ 10 MG/ML 1 ML VIAL IV PUSH (19:04)
[2024-12-15] MEDS: IPRATROPIUM 0.5 MG/ALBUTEROL SULFATE 2.5 MG AMPUL.NEB 3 ML 12 ML INHALATION (19:36)
[2024-12-15 19:54] LABS: Influenza A QL RT-PCR Negative (Negative); Influenza B QL RT-PCR Negative (Negative); RSV RNA, RT-PCR Negative (Negative); SARS-CoV-2 RNA PCR Negative (Negative)
[2024-12-15 20:08] LABS: Fractional Inspired Oxygen 21 %; HCO3 VBG 25.2 mEq/l (24.0-30.0); PCO2 VBG 39.4 mmHg (42.0-48.0)
[2024-12-15 20:09] LABS: Device ROOM AIR; PO2 VBG < 27.0 mmHg (35.0-45.0); pH VBG 7.423 (7.300-7.400)
--- NOTE | 2024-12-15 21:05 | PC.NURSE ---
Pt. requesting Tylenol for headache and zofran for nausea. Dr. Rodriguez notified. See MAR for interventions.
[2024-12-15] MEDS: ONDANSETRON INJ 4 MG/2 ML VIAL IV PUSH (21:16)
[2024-12-15] MEDS: ACETAMINOPHEN 500 MG TABLET 1000 MG PO (21:17)
[2024-12-15] MEDS: DOXYCYCLINE 100 MG/NS 100 ML 100 MG/100 ML BAG IVPB (21:49)
[2024-12-15] MEDS: SODIUM CHLORIDE 0.9% IV 1,000 ML 999 ML IV CONT (22:05)
--- NOTE | 2024-12-15 22:18 | PC.NURSE ---
RN gave pt specimen cup for her sputum at this time. Pt instructed to spit her sputum in specimen cup when she can.
--- NOTE | 2024-12-15 23:03 | ADMGEN ---
This patient, Qing hTomas, was admitted to 3 [facility] Surg Room 322-02. Patient/family oriented to hospital policies and general routines including ID bracelet, bed and alarms, visiting hours, pain management, procedures, bathroom and other care routines, personal items, smoking policy, room service/diet, and visiting hours. Information on how to activate the Rapid Response Team has been discussed. Patient/Family are encouraged to report perceived risks to care and to ask questions if they do not understand what they are told or what they should do.
[2024-12-16] VITALS (18 sets, daily range): BP systolic 104–162; BP diastolic 60–94; PULSE 57–85; RESP 16–20; TEMP 36–36.4; O2SAT 96–100
[2024-12-16] MEDS: IPRATROPIUM 0.5 MG/ALBUTEROL SULFATE 2.5 MG AMPUL.NEB 3 ML INHALATION ×4 (02:13→20:34)
--- NOTE | 2024-12-16 03:48 | PM.IMHP ---
H&P: HPI History of Present Illness Date/Time: 12/16/24 03:48 Chief Complaint: Shortness of breath and productive cough Narrative: 69-year-old female with a past medical history of anxiety, hyperlipidemia, hypertension, COPD hypothyroidism, GERD and recent pneumonia requiring hospitalization in [place] who presented to the ER with 4 days of productive cough and increasing shortness of breath. She reports that she was hospitalized in [place] for almost a month back in October. She had severe alcoholic pancreatitis, upper GI bleed with what sounds like esophageal ulcers, and pneumonia. She reports that about 4 days ago she began having a thick yellow-green sputum. She started drinking warm broth and increased her fluid intake. She reported that her sputum did thin out a little bit became more yellow but she is still having copious amounts of sputum. She has felt generally fatigued. She has had significant nausea. She was concerned she may be getting pneumonia and or pancreatitis again she thought that the mucus that was coming up may have been from the infection in her pancreas coming back upper throat. So she came into the ER for evaluation. She started having She was released from her job recently and since she has essentially now retired her and her have, to the area to visit with her sons. Her helped her oldest son purchased the apartment building the youngest son lives in and they are in the process of refurbishing the building. They have been painting and priming the [place]bett. In hindsight she thinks that this may have worsened some of her breathing. She denies any fevers or chills. Her COVID flu and RSV panel were negative in the ER. CT of the chest demonstrated old scarring but underlying infectious process could not be ruled out and she did have some mild leukocytosis. She reports feeling generally weak and run down. She reports significant improvement in her symptoms after she received Decadron and nebulizers in the ER. She wanted to be discharged home but given her history with she was encouraged to stay in the hospital. She reports that she has not been using her inhalers since they been in the area because she forgot her inhalers at home. Review of Systems Review of Systems: 12 systems were reviewed with pertinent positives and negatives per HPI. Except as documented in the HPI, all other systems were reviewed and are negative. FOR[facility]LY [facility], [facility] Past Medical History Medical History (Updated 12/16/24 @ 15:53 by Julian Hopkins MD) Cigarette smoker GERD (gastroesophageal reflux disease) Anxiety Hypothyroidism Rheumatoid arthritis Obstructive sleep apnea COPD (chronic obstructive pulmonary disease) Coronary artery disease Essential hypertension Congestive heart failure Surgical History Surgical History (Updated 12/16/24 @ 04:09 by Alexa Swenson DO) History of shoulder surgery 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 They have 2 sons. The youngest son has psychiatric illness. The patient and her as well as the patient's oldest son purchased the [address] building the [employer] and lives in an having it so that he has a permanent residence and stability in the future. Her and her still live in [facility] and her just in the area visiting. Patient has a history of heavy alcohol use that was extremely heavy since 2022. She stopped drinking and October when she got severe pancreatitis and GI bleed. She used to smoke a pack of cigarettes per day but switched to vaping more recently. Code status: Full code Surrogate decision maker: Smoking packs per day: 1 Smoking cigarettes per day: 20.0 Years smoked: 50 Smoking pack-years: 50.00 Smoking status: Current every day smoker Tobacco type: e-cigarettes/vaping Alcohol intake: former Alcohol use details: Heavy alcohol use with most heavy use between 2022 and October 2024 Substance use: never Do You Feel Safe in your Home?: Yes Lack of Transportation: No Lack of Food: Never True Current Housing: I Have Housing Concerned About Future Housing: No Difficulty Paying Gas/Electric Bills: No Difficulty Paying for Meds: No Currently Unemployed: No Education: Associate Degree Difficulty w/ Childcare or Family Care: No Spiritual care concerns: No Meds Home Medications and Allergies Home Medications ?Medication ?Instructions ?Recorded ?Confirmed ?Type aspirin 81 mg tablet,delayed 81 mg PO DAILY 12/15/24 12/15/24 History release atorvastatin 40 mg tablet 40 mg PO QPM 12/15/24 12/15/24 History buspirone 10 mg tablet 10 mg PO DAILY 12/15/24 12/15/24 History estradiol 1 mg tablet 1 mg PO DAILY 12/15/24 12/15/24 History furosemide 20 mg tablet 10 mg PO DAILY 12/15/24 12/15/24 History hydrochlorothiazide 25 mg tablet 25 mg PO DAILY 12/15/24 12/15/24 History levothyroxine 175 mcg tablet 175 mcg PO DAILY 12/15/24 12/15/24 History (Synthroid) losartan 50 mg tablet 50 mg PO BID 12/15/24 12/15/24 History metoprolol succinate 50 mg 150 mg PO Q12H 12/15/24 12/16/24 History tablet,extended release 24 hr sucralfate 1 gram tablet 1 g PO BID 12/15/24 12/15/24 History tizanidine 4 mg tablet 4 mg PO HS 12/15/24 12/15/24 History Allergies Allergy/AdvReac Type Severity Reaction Status Date / Time No Known Allergies Allergy Verified 12/15/24 17:58 Vital Signs Vital Signs - 24 hr 12/15/24 18:02 12/15/24 18:18 12/15/24 19:01 Temperature 98.2 F Pulse Rate 73 66 68 Respiratory Rate 18 20 Blood Pressure 144/82 H 152/73 H Pulse Oximetry 98 98 Oxygen Delivery Room Air 12/15/24 19:36 12/15/24 20:45 12/15/24 20:50 Temperature Pulse Rate 96 92 92 Respiratory Rate 16 26 H 18 Blood Pressure 152/73 H Pulse Oximetry 100 Oxygen Delivery 12/15/24 21:50 12/15/24 23:06 12/15/24 23:50 Temperature 97.9 F Pulse Rate 73 72 Respiratory Rate 21 H 18 Blood Pressure 133/83 100/55 L Pulse Oximetry 97 97 97 Oxygen Delivery Room Air 12/16/24 00:04 12/16/24 02:13 12/16/24 02:25 Temperature Pulse Rate 77 77 73 Respiratory Rate 18 18 Blood Pressure Pulse Oximetry Oxygen Delivery Exam Narrative: Weight 72.7 kg BMI 24.4 Const: Other: Thin body habitus, appears older than stated age HENMT: Other: Mucous membranes are moist, no oral pharyngeal erythema, positive conjunctival pallor, no scleral icterus crowded posterior oropharynx Eyes: Other: Pupils are equal and reactive, no scleral icterus positive conjunctival pallor Neck: Other: No JVD Resp: Other: Coarse crackles bilateral posterior lung brown lower lobes, conversational tachypnea Cardio: Other: Regular rate, regular rhythm, 2+ bilateral radial pedal pulses no JVD GI: Other: Soft, nontender, nondistended, positive bowel sounds Back/Spine/Pelvis: Other: Mild thoracic kyphosis Skin: Other: Non jaundice, no pallor Neuro: Other: Alert oriented, speech is clear, no facial asymmetry, no localizing neurologic deficits noted during the course of conversation the patient sat up without assistance and was cross-legged on the bed Extrem: Other: No clubbing, cyanosis or edema Psych: Other: Anxious, pleasant, cooperative H&P: Results Labs Labs: Laboratory Tests 12/15/24 18:13 12/15/24 18:13 12/15/24 12/15/24 12/15/24 18:13 18:58 19:22 WBC 14.4 H RBC 3.39 L Hgb 10.6 L Hct 33.8 L MCV 99.7 MCH 31.3 MCHC 31.4 L RDW 12.5 Plt Count 290 MPV 10.4 Immature Gran % (Auto) 0.3 Neut % (Auto) 75.4 H Lymph % (Auto) 14.7 L [place] % (Auto) 9.3 H Eos % (Auto) 0.0 Baso % (Auto) 0.3 Lymph # (Auto) 2.12 [place] # (Auto) 1.3 H Eos # (Auto) 0.0 Baso # (Auto) 0.1 Abs Immat Gran (auto) 0.05 H Absolute Neuts (auto) 10.8 H Absolute Nucleated RBC 0.000 Nucleated RBC % 0.0 VBG pH 7.423 H* VBG pCO2 39.4 L VBG pO2 < 27.0 L VBG HCO3 25.2 O2 Delivery Device Room air O2 Liters/Min Not Reportable FiO2 21 Sodium 134 L Potassium 3.8 Chloride 97 L Carbon Dioxide 25 Anion Gap 12 BUN 16 Creatinine 0.94 Estim Creat Clear Calc 52 Estimated GFR 59 Glucose 109 Calcium 9.1 Total Bilirubin 1.1 AST 33 ALT 18 Alkaline Phosphatase 77 Total Protein 8.7 H Albumin 4.5 Influenza A (RT-PCR) Negative Influenza B (RT-PCR) Negative RSV (RT-PCR) Negative SARS-CoV-2 RNA (RT-PCR) Negative Impressions Chest X-Ray 12/15/24 18:52 IMPRESSION: Left basilar atelectasis versus pneumonia. Chest CT 12/15/24 21:04 IMPRESSION: 1. Fibrotic changes of the lungs in the lower and upper lobes. Possibility of superimposed pneumonitis is not excluded in the lower lobes. Clinical correlation and follow-up advised. 2. Mediastinal lymphadenopathy. 3. Healing fractures in the right lower thorax. EKG:Test Date: 2024-12-15 18:12:45 Measurements Intervals [place] Rate: 65 P: 38 WV: 196 QRS: -31 QRSD: 102 T: -3 QT: 428 QTc: 446 Interpretive Statements SINUS RHYTHM LEFT AXIS DEVIATION LEFT VENTRICULAR HYPERTROPHY BORDERLINE T WAVE ABNORMALITY- INFERIOR LEADS BASELINE ARTIFACT- I, II, AVR, AVL, AVF, V1-V6 BORDERLINE ECG No previous ECG available for comparison Assessment and Plan Assessment and plan (1) Community acquired bilateral lower lobe pneumonia: Code(s): J18.9 - Pneumonia, unspecified organism Status: Acute (2) COPD with lower respiratory infection: Code(s): J44.0 - Chronic obstructive pulmonary disease with (acute) lower respiratory infection Status: Acute (3) Hypothyroidism: Qualifiers: Hypothyroidism type: unspecified Qualified Code(s): E03.9 - Hypothyroidism, unspecified Code(s): E03.9 - Hypothyroidism, unspecified Status: Acute (4) Hyponatremia: Code(s): E87.1 - Hypo-osmolality and hyponatremia Status: Acute (5) Cigarette smoker: Code(s): F17.210 - Nicotine dependence, cigarettes, uncomplicated Status: Acute (6) Obstructive sleep apnea on CPAP: Code(s): G47.33 - Obstructive sleep apnea (adult) (pediatric) Status: Acute Plan The patient has a COPD exacerbation likely due to environmental factors is with recent chemical exposures. She may also have some component of his pneumonia given change in sputum production. Sputum culture has been obtained and is pending. Blood cultures have also been obtained and are pending. Patient has been started on empiric antibiotic therapy with Rocephin and doxycycline. She received 1 dose of Decadron in the ER with significant improvement in symptoms. Will transition patient to oral prednisone and will continue scheduled nebulizer treatments. I have encouraged the patient to remain in the hospital until preliminary blood cultures have returned and we can have identification of her sputum specimen. Will continue patient's home chronic home O2 of 3 L. Will order BiPAP with bleed in O2 per home regimen. Will repeat CBC in a.m. Patient does have some hyponatremia this could be chronic. However will hold the patient's hydrochlorothiazide and Lasix. Patient seems quite anxious with pressured speech. Will resume patient's home BusPar. Patient continues to vape. The dangers of vaping and smoking were discussed with the patient in detail. 6 minutes was spent in smoking cessation education. Nicotine patch will be rehydrated. The patient is aware that she would benefit from stopping smoking but is not yet radial quit. Alcoholism with recent remission. Congratulated patient on her efforts in quitting drinking alcohol. Will avoid pharmacologic DVT prophylaxis due to recent GI bleed. SCDs have been ordered. Will continue home levothyroxine. Patient has been admitted as observation status. Quality VTE Prophylaxis VTE prophylaxis: pharmacologic ordered (Lovenox 40 mg subQ daily.) Hospitalist [facility] Advance Care Plan I have confirmed that the patient's Advanced Care Plan is present, code status is documented, or surrogate decision maker is listed in patient medical record.: Yes Medication Reconciliation I have utilized all available resources to obtain, update and review the patients current medications (includes all prescriptions, OTC, herbals, cannabis, and nutritional supplements).: Yes
[2024-12-16] MEDS: LEVOTHYROXINE SODIUM 100 MCG TABLET PO (06:03)
[2024-12-16] MEDS: LEVOTHYROXINE SODIUM 75 MCG TABLET PO (06:05)
[2024-12-16] MEDS: SUCRALFATE 1 GM TABLET PO ×2 (06:05→16:19)
--- OUTSIDE RECORDS SUMMARY | 2024-12-16 07:16 | XMS_ITS | Clinical Summary ---
Author Organization [facility] Address [address] [place] [id number] Phone Care Team Providers Care Director Security Risk Management Name Role Phone Linnea Rae APRN Primary Care Provider [phone] Allergies Active Allergy Reactions Criticality Noted Date [...] involving multiple sites with positive rheumatoid factor ([facility] INJECT 50 MG UNDER THE SKIN EVERY 7 DAYS 12 mL 10/26/2024 Active Active Problems No known active problems Encounters Date Type Department Care Team Description 11/12/2024 1:15 PM CDT Lab Only [facility] [address] [place] [place] [address] Rob Boyer MD Rheumatoid arthritis involving multiple sites with positive rheumatoid factor ([facility]) 10/26/2024 Refill [facility] [address] [place] [address] Karri Womack MD Refill Request 10/05/2024 Refill [facility] [address] [place] [address] Karri Womack MD Refill Request 09/28/2024 Refill [facility] [address] [place], [place] [id number] Karri Womack MD New Med Request 09/28/2024 Refill [facility] [address] [place] [address] Karri Womack MD New Med Request from [...] on file Legal 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 Gender Identity Not on file Sexual Orientation Not on file Last Filed Vital Signs Vital Sign Reading Time Taken Comments Blood Pressure 186/97 05/20/2024 1:27 PM MAMMOGRAPHY TECHNICIAN Pulse 70 05/20/2024 1:27 PM MAMMOGRAPHY TECHNICIAN Temperature 36.5 C (97.7 F) 03/13/2024 1:10 PM CDT Respiratory Rate - - Oxygen Saturation 96% 05/20/2024 1:27 PM MAMMOGRAPHY TECHNICIAN Inhaled Oxygen Concentration - - Weight 76.8 kg (169 lb 6.4 oz) 05/20/2024 1:27 P M MAMMOGRAPHY TECHNICIAN Height 172.7 cm (5' 8) 02/18/2024 7:58 [...] involving multiple sites with positive rheumatoid factor ([facility]) from Last 3 Months Results * (ABNORMAL) COMPREHENSIVE METABOLIC PANEL (11/12/2024 1:15 PM CDT) CALCIUM 9.4 8.9 - 10.6 mg/dL [facility] GLUCOSE 97 74 - 100 mg/dL [facility] BUN 29(H) 10 - 20 mg/dL [facility] CREATININE 1.22(H) 0.55 - 1.02 mg/dL [facility] TOTAL PROTEIN 8.1(H) 6.0 - 8.0 g/dL [facility] ALBUMIN 4.0 3.4 - 4.8 g/dL [facility] BILIRUBIN, TOTAL 0.8 0.2 - 1.2 mg/dL [facility] AST 39 9 - 43 U/L [facility] ALT 18 0 - 34 U/L [facility] ALKALINE PHOSPHATASE 52 40 - 150 U/L [facility] SODIUM 139 136 - 145 mmol/L [facility] POTASSIUM 3.3(L) 3.5 - 5.1 mmol/L [facility] CHLORIDE 101 98 - 107 mmol/L [facility] CO2 27.0 22.0 - 29.0 mmol/L [facility] GFR: CKD-EPI 202 CREAT 48 arbitrary unit [facility] Comment: eGFR of 90 or higher [...] for the assessment of chronic kidney disease. [facility], [address] [place] [address] 11/12/2024 1:15 PM CDT 11/12/2024 7:34 PM CDT Karri Womack MD HEM/CHEM/IMMUN-BLOOD Final Result Performing Organization Address City/State/[facility] Co de Phone Number [facility] [address] [place] [address], [place] from Last 3 Months Insurance [employer] (POS, PPO, etc) Address: [address] [place] [address] [employer] (POS, PPO, etc) Address: [address] [place] [address] Care Teams Director Security Risk Management Relationship Specialty Start Date End Date Linnea Rae APRN [facility], [facility] [address] [place] [address] PCP - General Family Medicine 09/13/23
--- OUTSIDE RECORDS SUMMARY | 2024-12-16 07:16 | XMS_ITS | Clinical Summary ---
Author Organization [address] Address [address] [place] [phone] Care Team Providers Care Executive Cyber Leader Name Role Phone Unknown, Notinfile Primary Care [...] 1 tablet (175 mcg total) by mouth counselor manager before breakfast 4 Active hydroCHLOROthia zide (HYDRODIURIL) 25 mg tablet Take 1 tablet (25 mg total) by mouth counselor manager before breakfast 4 Active sucralfate (CARAFATE) 1 [...] Description 12/15/2024 5:00 PM CDT Office Visit [facility] at [address] [address] Jenelle Lazaro NP Chest congestion [...] OF CARE TEST ORDERABLES F inal Result [facility] [address] [place] [address], [facility] from Last 3 Months Insurance [employer] [place] Care Teams Executive Cyber Leader Relationship Specialty Start Date End Date Unknown, Notinfile PCP - General 12/15/24
--- OUTSIDE RECORDS SUMMARY | 2024-12-16 07:16 | XMS_ITS | Referral Summary ---
Author Organization [address] Address [address] [place] [phone] Care Team Providers Care Manager Family Name Role Phone Unknown, Notinfile Primary Care Provider Unavail able Encounters Date Type Department Care Team Description 12/15/2024 5:00 PM CDT Office Visit [facility] at [address] [address] Jenelle Lazaro NP Chest congestion [...] 1 tablet (175 mcg total) by mouth serology teacher before breakfast 4 Active hydroCHLOROthia zide (HYDRODIURIL) 25 mg tablet Take 1 tablet (25 mg total) by mouth serology teacher before breakfast 4 Active sucralfate (CARAFATE) 1 [...] TEST ORDERABLES F inal Result [facility] [address] [place] [address], [facility] from Last 3 Months Insurance [employer] Care Teams Manager Family Relationship Specialty Start Date End Date Unknown, Notinfile PCP - General 12/15/24
--- OUTSIDE RECORDS SUMMARY | 2024-12-16 07:16 | XMS_ITS | Encounter Summary ---
Author Organization [facility] Address [address] [place] [address] Care Team Providers Care Primary Special Education Teacher Name Role Phone Unknown, Notinfile Primary Care Provider Unavail able Reason for Visit * Reason Comments chest congestion Cough, NVD, pain in pancreas, fatigue for four days. Encounter Details Date Type Department Care Team (Late st Contact Info) Description 12/15/2024 5:00 PM CDT Office Visit [facility] at [address] [address] Jenelle Lazaro, CARMINE [address] [place] [address] [address] [place] [address] Chest congestion (Primary Dx) Social [...] CDT) Influenza A Ag, POC Negative Negative [facility] Influenza B Ag, POC Negative Negative [facility] COVID-19 Ag POC Presumptive Negative Presumptive Negative, Invalid [facility] Nasal 12/15/2024 5:38 PM CDT Jenelle Lazaro NP POINT OF CARE TEST ORDERABLES F inal Result [facility] [address] documented in this encounter Visit Diagnoses [...] 1 tablet (25 mg total) by mouth before and after school daycare worker before breakfast 01/22/2024 levothyroxine (SYNTHROID) 175 mcg tablet Take 1 tablet (175 mcg total) by mouth before and after school daycare worker before breakfast 01/22/2024 tiZANidine (ZANAFLEX) 4 mg [...] 10/07/2024 added in this encounter Care Teams Primary Special Education Teacher Relationship Specialty Start Date End Date Unknown, Notinfile PCP - General 12/15/24 documented as of this encounter
--- OUTSIDE RECORDS SUMMARY | 2024-12-16 07:16 | XMS_ITS ---
Author Organization [facility] Care Team Providers Care Stone Derrickman And Rigger Name Role Phone PRANAY HAYS Unavailable Unavailable GORGE PLATT Unavailable Unavailable DANUTA BLAND Unavailable Unavailable Allergies and adverse reactions No Known Allergies Care Team Name Role Address Phone Organization Dates DANUTA BLAND PCP [address] [facility] [address], [place], [address], [place] (Office): [facility] 11/04/2018 - 11/25/2018 PRANAY HAYS [address] [place], [address], [facility] (Office): : [facility] 11/04/2018 - 11/25/2018 GORGE PLATT [address] [place], [address], [facility] (Office): : [facility] 11/04/2018 - 11/25/2018 Immunizations Immunization Status Vaccine [...] IN WALKIN G, NOT ELSEWHERE CLASSIFIED [address] active 2 DISPLACED INTERTROCHANTERIC FRACTURE OF LEFT FEMUR, SUBSEQUENT ENCOUNTER FOR CLOSED FRACTURE WITH ROUTINE HEALING [address] active 3 ESSENTIAL (PRIMARY) HYPERTENSION [address] active 4 GASTRO-ESOPHAGEAL REFLUX DISEASE WITHOUT ESOPHAGITIS [address] active 5 HYPOTHYROIDISM, UNSPECIFIED [address] active 6 INSOMNIA, UNSPECIFIED [address] active 7 MUSCLE WEAKNESS (GENERALIZED) [address] active 8 OBSTRUCTIVE SLEEP APNEA (ADULT) (PEDIATRIC) [address] active 9 PAIN IN LEFT HIP [address] active 10 PAIN IN LEFT THIGH [address] active Reason for Referral No Reasons for Referral Entered Social History Social History Observation Description Start Date End Date Code Code System Current Smoking Status Tobacco smoking consumption unknown 255253898 SNOMED CT Sex Assigned At Female 1955 14660-0 [facility] Gender Identity Vital Signs Code Code System Vitals Name Values and Units Timing Information 9279-1 LOINC Respiratory Rate Value=16.0 Units=/m in 11/25/2018 8462-4 LOINC Blood Pressure-Diastolic Value=89 Un its=mmHg 11/25/2018 8480-6 LOINC Blood Pressure-Systolic Jungp=702 Un its=mmHg 11/25/2018 8310-5 LOINC Body Temperature Value=98.2 Units= F 11/25/2018 8867-4 [facility] Heart rate Value=70.0 Units=/min 38277-9 [facility] Pain Level Value=1.0 11/25/2018 24825-2 [facility] O2 % BldC Oximetry Value=97.0 Units= % 11/18/2018 97864-3 LOINC Weight Qjbqu=964.0 Units=Lbs 02/2019 8302-2 [facility] Height Value=67.5 Units=Inches 11/04/2018
--- OUTSIDE RECORDS SUMMARY | 2024-12-16 07:17 | XMS_ITS | Encounter Summary ---
Author Organization [facility] Address [address] [place] [address] Phone Care Team Providers Care Heating And Blending Supervisor Name Role Phone Butch Linnea KOO Primary Care Provider [phone] Encounter Details Date Type Department Care Team (Late st Contact Info) Description 02/18/2024 Refill [facility] [address] [place] [address] Karri Womack MD [address] [place] [address] Social History Tobacco Use Types Packs/Day Years Used Date Smoking Tobacco: Every Day Cigarettes 1 20 Passive Smoke Exposure: Never Smokeless Tobacco: Never Alcohol Use Standard Drinks/Week Comments Yes 5 (1 standard drink = 0.6 oz pur e alcohol) Comments Unknown Sex and Gender Information Value Date Recorded Sex Assigned at Not on file Legal Sex Female 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 * Telephone Encounter - Lyssa Aguayo - 02/18/2024 11:22 AM CDT Enbrel was approved by [facility] from 01/19/24-08/16/24. JIAN Insurance Auth # [id number] . Added information to referral entry. Added [...] involving multiple sites with positive rheumatoid factor ([facility])- Primary documented in this encounter Care Teams Heating And Blending Supervisor Relationship Specialty Start Date End Date Linnea Rae APRN FORMERLY [facility], [facility] [address] [place] [address] PCP - General Family Medicine 09/13/23 documented as of this encounter
[2024-12-16] MEDS: NICOTINE (*PBKC) 21 MG PATCH 1 PATCH TRANSDERM (08:53)
[2024-12-16] MEDS: busPIRone HCL 10 MG TABLET PO (08:53)
[2024-12-16] MEDS: LOSARTAN POTASSIUM 50 MG TABLET PO ×2 (08:53→16:20)
[2024-12-16] MEDS: ASPIRIN 81 MG ENTERIC TABLET PO (08:54)
[2024-12-16] MEDS: predniSONE 20 MG TABLET 60 MG PO (08:54)
[2024-12-16] MEDS: METOPROLOL SUCCINATE EXT REL 50 MG TABCR 150 MG PO (08:54)
[2024-12-16 08:58] LABS: Hemoglobin 9.6 g/dL (12.0-15.0); Mean Corpuscular Hemoglobin 32.1 pg (26-34); Mean Corpuscular Volume 100.3 fl (80-100); Platelet Count Result 287 k/mm3 (150-375); Red Blood Count 2.99 M/mm3 (4.2-5.4); Red Cell Distribution Width 12.6 % (11.5-14.5); White Blood Count 13.4 K/mm3 (4.5-10.0)
[2024-12-16 09:16] LABS: Anion Gap 12 mmol/L (4-12); Blood Urea Nitrogen 19 mg/dL (7-17); Calcium 8.8 mg/dL (8.4-10.2); Carbon Dioxide 25 mmol/L (22-30); Chloride 98 mmol/L (98-107); Estimated CRCL calculation 52 ml/min; Estimated Glomerular Filt Rate 59; Glucose 187 mg/dL (65-110); Potassium 3.6 mmol/L (3.4-5.0); Sodium 135 mmol/L (137-145)
[2024-12-16] MEDS: DOXYCYCLINE 100 MG/NS 100 ML 100 MG/100 ML BAG IVPB ×2 (11:09→21:34)
--- NOTE | 2024-12-16 13:05 | PM.IMPN ---
Progress Note: A&P Assessment and Plan (1) Community acquired bilateral lower lobe pneumonia: Code(s): J18.9 - Pneumonia, unspecified organism Status: Acute (2) COPD with lower respiratory infection: Code(s): J44.0 - Chronic obstructive pulmonary disease with (acute) lower respiratory infection Status: Acute (3) Hypothyroidism: Qualifiers: Hypothyroidism type: unspecified Qualified Code(s): E03.9 - Hypothyroidism, unspecified Code(s): E03.9 - Hypothyroidism, unspecified Status: Acute (4) Hyponatremia: Code(s): E87.1 - Hypo-osmolality and hyponatremia Status: Acute (5) Cigarette smoker: Code(s): F17.210 - Nicotine dependence, cigarettes, uncomplicated Status: Acute (6) Obstructive sleep apnea on CPAP: Code(s): G47.33 - Obstructive sleep apnea (adult) (pediatric) Status: Acute Plan interstitial lung disease vs Pneumonia Continue Rocephin and Azithromycin Continue Prednisone Pulmonology consulted COPD with chronic respiratory failure on 3 liters at [facility] continue Steroid and Duoned treatment monitor Hypothyroidism continue home meds Hyponatremia resolved Na 135 LEX Continue Home bipap Quit vaping recently DVT prophylaxis on Subjective Date/time seen: 12/16/24 13:05 Interval history: Patient comfortable at bedside and still having cough NO wheezing Review of Systems Review of Systems: 12 systems were reviewed with pertinent positives and negatives per HPI. Except as documented in the HPI, all other systems were reviewed and are negative. Exam Narrative: Weight 72.7 kg BMI 24.4 General: alert and comfortable Eyes: EOMI, PERRLA ENNT External ears normal, Neck is supple, no masses, Respiratory systems: crackles bilaterally Cardiovascular S1, S2, normal rhythm, no murmur, rub, or gallop; no thrill or palpable murmurs on palpation. Gastrointestinal: soft, non-tender, and non-distended abdomen with no masses; BS present Skin: no rash, lesions, ulcerations, subcutaneous nodules or induration Musculoskeletal: no abnormality and no tenderness, normal ROM Neurologic: Alert and oriented x3, non focal Mental Status Exam: normal affect Objective Data Vital Signs Vital Signs: Vital Signs - 24 hr 12/15/24 18:02 12/15/24 18:18 12/15/24 19:01 Temperature 98.2 F Pulse Rate 73 66 68 Respiratory Rate 18 20 Blood Pressure 144/82 H 152/73 H Pulse Oximetry 98 98 Oxygen Delivery Room Air 12/15/24 19:36 12/15/24 20:45 12/15/24 20:50 Temperature Pulse Rate 96 92 92 Respiratory Rate 16 26 H 18 Blood Pressure 152/73 H Pulse Oximetry 100 Oxygen Delivery 12/15/24 21:50 12/15/24 23:06 12/15/24 23:50 Temperature 97.9 F Pulse Rate 73 72 Respiratory Rate 21 H 18 Blood Pressure 133/83 100/55 L Pulse Oximetry 97 97 97 Oxygen Delivery Room Air 12/16/24 00:04 12/16/24 02:13 12/16/24 02:25 Temperature Pulse Rate 77 77 73 Respiratory Rate 18 18 Blood Pressure Pulse Oximetry Oxygen Delivery 12/16/24 04:00 12/16/24 04:01 12/16/24 08:00 Temperature 97.2 F L Pulse Rate 68 63 Respiratory Rate 17 Blood Pressure 104/60 Pulse Oximetry 100 Oxygen Delivery Room Air 12/16/24 08:00 12/16/24 08:00 12/16/24 08:54 Temperature 97.5 F L Pulse Rate 75 57 L 75 Respiratory Rate 16 Blood Pressure 126/67 Pulse Oximetry 96 Oxygen Delivery 12/16/24 12:00 Temperature Pulse Rate 80 Respiratory Rate Blood Pressure Pulse Oximetry Oxygen Delivery Intake/Output Intake/Output: Intake & Output 12/13/24 12/14/24 12/15/24 12/16/24 23:59 23:59 23:59 23:59 Intake Total 150 340 Balance 150 340 Meds/Results Medications: Active Medications Generic Name Dose Route Start Last Admin Trade Name Rameshq PRN Reason Stop Dose Admin Albuterol/Ipratropium 3 ml 12/16/24 02:00 12/16/24 02:13 Ipratropium 0.5 Mg/Albuterol Sulfate 2.5 Mg Ampul.Neb 3 Ml INHALATION 3 ml Q6HRT KARISSA Administration Aspirin 81 mg 12/16/24 09:00 12/16/24 08:54 Aspirin 81 Mg Enteric Tablet PO 81 mg DAILY KARISSA Administration Atorvastatin Calcium 40 mg 12/16/24 18:00 Atorvastatin 40 Mg Tablet PO QPM KARISSA Buspirone HCl 10 mg 12/16/24 09:00 12/16/24 08:53 Buspirone Hcl 10 Mg Tablet PO 10 mg DAILY KARISSA Administration Ceftriaxone Sodium 1 gm in 50 mls @ 100 mls/hr 12/16/24 21:00 Rocephin 1 Gm/Ns 50 Ml IVPB Q24H [facility] Doxycycline Hyclate 100 mg in 100 mls @ 100 mls/hr 12/16/24 10:00 12/16/24 12:09 Vibramycin 100 Mg/Ns 100 Ml IVPB Infused Q12H [facility] Infusion Levothyroxine Sodium 100 mcg 12/16/24 06:30 12/16/24 06:03 Levothyroxine Sodium 100 Mcg Tablet PO 100 mcg DAILY@0630 [facility] Administration Levothyroxine Sodium 75 mcg 12/16/24 06:30 12/16/24 06:05 Levothyroxine Sodium 75 Mcg Tablet PO 75 mcg DAILY@0630 [facility] Administration Losartan Potassium 50 mg 12/16/24 09:00 12/16/24 08:53 Losartan Potassium 50 Mg Tablet PO 50 mg BID [facility] Administration Metoprolol Succinate 150 mg 12/16/24 09:00 12/16/24 08:54 Metoprolol Succinate Ext Rel 50 Mg Tabcr PO 150 mg Q12HR [facility] Administration Nicotine 1 patch 12/16/24 09:00 12/16/24 08:53 Nicotine (*Pbkc) 21 Mg Patch TRANSDERM 1 patch QAM [facility] Administration Prednisone 60 mg 12/16/24 08:00 12/16/24 08:54 Prednisone 20 Mg Tablet PO 60 mg DAILY@0800 [facility] Administration Sucralfate 1 gm 12/16/24 07:00 12/16/24 06:05 Sucralfate 1 Gm Tablet PO 1 gm 0700,1600 [facility] Administration Tizanidine HCl 4 mg 12/16/24 21:00 Tizanidine Hcl 4 Mg Tablet PO [facility] Radiology Results: ITS Impressions Chest X-Ray 12/15/24 18:52 IMPRESSION: Left basilar atelectasis versus pneumonia. Chest CT 12/15/24 21:04 IMPRESSION: 1. Fibrotic changes of the lungs in the lower and upper lobes. Possibility of superimposed pneumonitis is not excluded in the lower lobes. Clinical correlation and follow-up advised. 2. Mediastinal lymphadenopathy. 3. Healing fractures in the right lower thorax. Labs Labs: Laboratory Results - last 24 hr 12/15/24 12/15/24 12/15/24 18:13 18:58 19:22 WBC 14.4 H RBC 3.39 L Hgb 10.6 L Hct 33.8 L MCV 99.7 MCH 31.3 MCHC 31.4 L RDW 12.5 Plt Count 290 MPV 10.4 Immature Gran % (Auto) 0.3 Neut % (Auto) 75.4 H Lymph % (Auto) 14.7 L Mccracken % (Auto) 9.3 H Eos % (Auto) 0.0 Baso % (Auto) 0.3 Lymph # (Auto) 2.12 Mccracken # (Auto) 1.3 H Eos # (Auto) 0.0 Baso # (Auto) 0.1 Abs Immat Gran (auto) 0.05 H Absolute Neuts (auto) 10.8 H Absolute Nucleated RBC 0.000 Nucleated RBC % 0.0 VBG pH 7.423 H* VBG pCO2 39.4 L VBG pO2 < 27.0 L VBG HCO3 25.2 O2 Delivery Device Room air O2 Liters/Min Not Reportable FiO2 21 Sodium 134 L Potassium 3.8 Chloride 97 L Carbon Dioxide 25 Anion Gap 12 BUN 16 Creatinine 0.94 Estim Creat Clear Calc 52 Estimated GFR 59 Glucose 109 Calcium 9.1 Total Bilirubin 1.1 AST 33 ALT 18 Alkaline Phosphatase 77 Total Protein 8.7 H Albumin 4.5 Influenza A (RT-PCR) Negative Influenza B (RT-PCR) Negative RSV (RT-PCR) Negative SARS-CoV-2 RNA (RT-PCR) Negative 12/16/24 08:48 WBC 13.4 H RBC 2.99 L Hgb 9.6 L Hct 30.0 L MCV 100.3 H MCH 32.1 MCHC 32.0 RDW 12.6 Plt Count 287 MPV 10.0 Immature Gran % (Auto) Neut % (Auto) Lymph % (Auto) Mccracken % (Auto) Eos % (Auto) Baso % (Auto) Lymph # (Auto) M[place]racken # (Auto) Eos # (Auto) Baso # (Auto) Abs Immat Gran (auto) Absolute Neuts (auto) Absolute Nucleated RBC Nucleated RBC % VBG pH VBG pCO2 VBG pO2 VBG HCO3 O2 Delivery Device O2 Liters/Min FiO2 Sodium 135 L Potassium 3.6 Chloride 98 Carbon Dioxide 25 Anion Gap 12 BUN 19 H Creatinine 0.94 Estim Creat Clear Calc 52 Estimated GFR 59 Glucose 187 H Calcium 8.8 Total Bilirubin AST ALT Alkaline Phosphatase Total Protein Albumin Influenza A (RT-PCR) Influenza B (RT-PCR) RSV (RT-PCR) SARS-CoV-2 RNA (RT-PCR) Quality VTE Prophylaxis VTE prophylaxis: pharmacologic ordered (Lovenox 40 mg subQ daily.)
[2024-12-16] MEDS: ENOXAPARIN 40 MG/0.4 ML SYRINGE SUB-Q (13:35)
--- NOTE | 2024-12-16 13:41 | P.CONPL_ITS ---
Assessment and Plan Assessment and plan (1) COPD (chronic obstructive pulmonary disease): Code(s): J44.9 - Chronic obstructive pulmonary disease, unspecified Status: Acute Assessment and Plan: Regarding her COPD, she has a 38 pack year tobacco use, quit in 2018., she has been vaping for the last 7 years. She has been exposed to secondhand smoke from her parents and from her current . She was given this diagnosis a month and half ago when she was admitted to the hospital in [place]. Patient was told she had COPD when she left the hospital and was prescribed albuterol nebulizers p.r.n. and air supra 90-80 to take 2 to 3 times a day. Over the last 7 years the patient is dyspnea on exertion has worsened from 7 blocks to 1/2 a block. She says she can only walk half a block now because of pain rather than shortness of breath. She has no rest shortness of breath. She denies chronic cough and chronic phlegm production. CT scan of the chest on 12/15/2024 demonstrates mild apical predominant paraseptal emphysema. the patient tells me she has never had pulmonary function testing. Currently the patient presents 12/15/24 after painting primer in room with 5 days worsening shortness of breath, cough, wheezing, fever and worsening green phlegm. She was treated with a COPD exacerbation with steroids, bronchodilators and antibiotics. 12/16/2024: Currently the patient tells me that she has improved. She says her cough is 50% better. Her phlegm production is improved and 50% back to baseline. She does not have any wheezing. Currently she is on room air with saturations 99%. Plan: Agree with treatment for possible COPD exacerbation. Patient currently on prednisone 40 mg p.o. q.day, day 2 of steroids. Agree with albuterol ipratropium nebulizers q.6 hours. Agree with ceftriaxone and doxycycline both day 2. I will send urine Legionella, urine pneumococcal, mycoplasma IgM and respiratory pathogen panel looking for etiologies of infection. The patient tells me she has difficult time expectorating and I will add guaifenesin 1200 mg p.o. b.i.d. I will send alpha 1 anti trypsin genotype and level. Patient also states she has sinus congestion and rhinorrhea. she has responded to antihistamines in the past and I will give her loratadine 10 mg p.o. q.day. she has responded to Flonase in the past and I will prescribe Flonase 1 spray each nostril q.12 hours. Goal saturation 90-94%, currently the patient is on room air. Will follow with you. (2) ILD (interstitial lung disease): Code(s): J84.9 - Interstitial pulmonary disease, unspecified Status: Acute Assessment and Plan: Patient is followed by Rheumatology and carries a diagnosis of rheumatoid arthritis. She had a back surgery 1984 and there was mention of ankylosing spondylitis. She has fibromyalgia. Patient has been on methotrexate and is currently on injectable medicine that she does not know the name of. The patient tells me she has had CT scans of the chest previously but has never been told she had any interstitial lung disease or scarring. 10/15/24: CT scan of the chest with mild to moderate peripheral and basilar dependent reticulations with honeycombing and mild lower lobe traction bronchiectasis. In my opinion this consistent with apical predominant paraseptal emphysema with a typical UIP CT pattern. Etiology of patient's interstitial lung disease includes autoimmune interstitial lung disease, IPF, and or methotrexate lung toxicity. Plan: Patient tells me she will not follow up at [facility] but will follow-up with her primary care team in [facility]. 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 She will need serial CT scans and PFTs to assess for progression of this interstitial lung disease as an outpatient. (3) Obstructive sleep apnea on CPAP: Code(s): G47.33 - Obstructive sleep apnea (adult) (pediatric) Status: Acute Assessment and Plan: Regarding her obstructive sleep apnea the patient was diagnosed 10 years ago and has been on auto PAP she believes 5 to 10 with 3 L bleed in and she wears a nasal pillow. Her DME company is [employer] in [place]. Plan: tonkit will attempt to wear Hospital auto PAP 5 to 15 with 3 L bleed in fullface mask. History of Present Illness History of Present Illness Consult date: 12/16/24 Chief complaint: COPD/PNA Narrative: 12/16/2024: This is a new pulmonary consult for [facility]. 69-year-old with a history of COPD, LEX on BiPAP, hypertension, Rheumatoid arthritis, possible ankylosing spondylitis, hyperlipidemia, hypothyroidism, GERD, alcoholic pancreatitis, upper GI bleed with possible esophageal ulcers and recent pneumonia. Regarding her COPD, she has a 38 pack year tobacco use, quit in 2018., she has been vaping for the last 7 years. She has been exposed to secondhand smoke from her parents and from her current . She was given this diagnosis a month and half ago when she was admitted to the hospital in [place]. Patient was told she had COPD when she left the hospital and was prescribed albuterol nebulizers p.r.n. and air supra 90-80 to take 2 to 3 times a day. Over the last 7 years the patient is dyspnea on exertion has worsened from 7 blocks to 1/2 a block. She says she can only walk half a block now because of pain rather than shortness of breath. She has no rest shortness of breath. She denies chronic cough and chronic phlegm production. Regarding her obstructive sleep apnea the patient was diagnosed 10 years ago and has been on auto PAP she believes 5-10 with 3 L bleed in and she wears a nasal pillow. Her [employer] company is [employer] in [place]. regarding her rheumatoid arthritis she was given a formal diagnosis 3-4 years ago. Both of her parents have rheumatoid arthritis. Patient was treated 5 years ago with methotrexate for 1-1 and half years and this was discontinued because it was not helping her. She then was referred to a different bottle gauger who started her on an injection and she has been on a weekly injection for the last year to year and a half with improvement. Her symptoms include joint pain. 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 She has had a left knee operation and right shoulder operation. Patient also had a fall and had a left hip operation. She takes multiple bursts of prednisone the last of which was 4-5 months ago. Patient admitted to a hospital in [place] from 10/06/2024 through 10/28/2024. Patient tells me she had a heart attack, acute kidney injury, pancreatitis, pneumonia, GI bleed with ulcers in her esophagus and stomach. Patient was never intubated but on supplemental oxygen. Patient was recovering well from her hospitalization in [place]. Patient smoked tobacco from age [age] at 1 pack per day for a total of 38 pack years. Patient was exposed to secondhand smoke from both her parents. Patient is currently spoke exposed to secondhand smoke from her . For the last 7 years the patient has been smoking electronic cigarettes. She does not smoke marijuana. 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 Approximately 12/10/2024 the patient was painting a house with primer and developed shortness of breath, cough and wheezing. Over the next few days she developed green phlegm and a fever. Her symptoms worsened and she presented to the emergency room on 12/15/2024. 12/15/2024: Patient presented to the emergency room department with 4 days history of cough, worsening shortness of breath. Blood pressure 144/82, heart rate 73, respirations 18, room air saturations 98%. White blood cell count 14.4, eosinophils 0%. Creatinine 0.94. Venous room air blood gas 7.42/39 less than 27. COVID influenza, RSV RT PCR assay negative. CT scan of the chest with mild apical predominant paraseptal emphysema. Mild to moderate peripheral and basilar dependent reticulations with honeycombing and mild lower lobe traction bronchiectasis. In my opinion this consistent with apical predominant paraseptal emphysema with a typical UIP CT pattern. patient was treated with ceftriaxone, doxycycline, bronchodilators and dexamethasone 10 mg IV push. 12/16/2024: Currently the patient tells me that she has improved. She says her cough is 50% better. Her phlegm production is improved and 50% back to baseline. She does not have any wheezing. Currently she is on room air with saturations 99%. DATA: 12/15/24: CT diagnostic chest wo con Ordering provider: Earl Rodriguez MD History: 69 years Female with . Eval PNA . Comparison: None. FINDINGS: VISUALIZED THORACIC INLET: Normal. MEDIASTINUM: Aorta/coronary arteries: Mild atheromatous disease. Ascending aorta measures 4 seen. Heart/other: The heart is slightly enlarged. Lymph nodes: Precarinal lymph nodes are seen with the largest measures 1.6 cm. LUNGS: Emphysematous changes seen in the upper and lower lobes. Superimpose pneumonitis in the lower lobes is not excluded. No pulmonary nodules or masses. No effusions. No pneumothorax. VISUALIZED UPPER ABDOMEN: Adenoma in the left adrenal gland is seen measuring 1.1 cm. No follow-up advised unless clinically warranted. Thickened wall of the stomach. Otherwise, the visualized upper abdomen is normal. MUSCULOSKELETAL: Soft tissues: The superficial soft tissues are normal. Bones: Dextroscoliosis. Age appropriate degenerative changes of the spine. Healing rib fractures are seen in the right lower thorax. Severe osteoarthritic changes of the right shoulder. IMPRESSION: 1. Fibrotic changes of the lungs in the lower and upper lobes. Possibility of superimposed pneumonitis is not excluded in the lower lobes. Clinical correlation and follow-up advised. 2. Mediastinal lymphadenopathy. 3. Healing fractures in the right lower thorax. Review of Systems 2 Constitutional: Constitutional: Reports no additional constitutional complaints Eyes: Eyes: Reports no additional eye complaints ENT: Reports system reviewed and no additional complaints, except as documented Cardiovascular: Cardiovascular: Reports no additional cardiovascular complaints Respiratory: Respiratory: Reports no additional respiratory complaints Gastrointestinal: Gastrointestinal: Reports no additional gastrointestinal complaints Musculoskeletal: Musculoskeletal: Reports no additional musculoskeletal complaints Neurologic: Reports system reviewed and no additional complaints, except as documented Psychiatric: Psychiatric: Reports no additional psychiatric complaints Endocrine: Endocrine: Reports no additional endocrine complaints Hematologic/Lymphatic: Hematologic/Lymphatic: Reports no additional hematologic/lymphatic complaints Allergic/Immunologic: Allergic/Immunologic: Reports no additional allergic/immunologic complaints [facility] Past Medical History Medical History (Updated 12/16/24 @ 15:53 by Julian Hopkins MD) Cigarette smoker GERD (gastroesophageal reflux disease) Anxiety Hypothyroidism Rheumatoid arthritis Obstructive sleep apnea COPD (chronic obstructive pulmonary disease) Coronary artery disease Essential hypertension Congestive heart failure Surgical History Surgical History (Updated 12/16/24 @ 04:09 by Alexa Swenson DO) History of shoulder surgery 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 They have 2 sons. The youngest son has psychiatric illness. The patient and her as well as the patient's oldest son purchased the [address] building the [employer] and lives in an having it so that he has a permanent residence and stability in the future. Her and her still live in [facility] and her just in the area visiting. Patient has a history of heavy alcohol use that was extremely heavy since 2022. She stopped drinking and October when she got severe pancreatitis and GI bleed. She used to smoke a pack of cigarettes per day but switched to vaping more recently. Code status: Full code Surrogate decision maker: Smoking packs per day: 1 Smoking cigarettes per day: 20.0 Years smoked: 50 Smoking pack-years: 50.00 Smoking status: Current every day smoker Tobacco type: e-cigarettes/vaping Alcohol intake: former Alcohol use details: Heavy alcohol use with most heavy use between 2022 and October 2024 Substance use: never Do You Feel Safe in your Home?: Yes Lack of Transportation: No Lack of Food: Never True Current Housing: I Have Housing Concerned About Future Housing: No Difficulty Paying Gas/Electric Bills: No Difficulty Paying for Meds: No Currently Unemployed: No Education: Associate Degree Difficulty w/ Childcare or Family Care: No Spiritual care concerns: No Meds Home Medications and Allergies Home Medications ?Medication ?Instructions ?Recorded ?Confirmed ?Type aspirin 81 mg tablet,delayed 81 mg PO DAILY 12/15/24 12/15/24 History release atorvastatin 40 mg tablet 40 mg PO QPM 12/15/24 12/15/24 History buspirone 10 mg tablet 10 mg PO DAILY 12/15/24 12/15/24 History estradiol 1 mg tablet 1 mg PO DAILY 12/15/24 12/15/24 History furosemide 20 mg tablet 10 mg PO DAILY 12/15/24 12/15/24 History hydrochlorothiazide 25 mg tablet 25 mg PO DAILY 12/15/24 12/15/24 History levothyroxine 175 mcg tablet 175 mcg PO DAILY 12/15/24 12/15/24 History (Synthroid) losartan 50 mg tablet 50 mg PO BID 12/15/24 12/15/24 History metoprolol succinate 50 mg 150 mg PO Q12H 12/15/24 12/16/24 History tablet,extended release 24 hr sucralfate 1 gram tablet 1 g PO BID 12/15/24 12/15/24 History tizanidine 4 mg tablet 4 mg PO HS 12/15/24 12/15/24 History Allergies Allergy/AdvReac Type Severity Reaction Status Date / Time No Known Allergies Allergy Verified 12/15/24 17:58 Vital Signs Vital Signs - 24 hr 12/15/24 18:02 12/15/24 18:18 12/15/24 19:01 Temperature 36.8 C Pulse Rate 73 66 68 Respiratory Rate 18 20 Blood Pressure 144/82 H 152/73 H Pulse Oximetry 98 98 Oxygen Delivery Room Air 12/15/24 19:36 12/15/24 20:45 12/15/24 20:50 Temperature Pulse Rate 96 92 92 Respiratory Rate 16 26 H 18 Blood Pressure 152/73 H Pulse Oximetry 100 Oxygen Delivery 12/15/24 21:50 12/15/24 23:06 12/15/24 23:50 Temperature 36.6 C Pulse Rate 73 72 Respiratory Rate 21 H 18 Blood Pressure 133/83 100/55 L Pulse Oximetry 97 97 97 Oxygen Delivery Room Air 12/16/24 00:04 12/16/24 02:13 12/16/24 02:25 Temperature Pulse Rate 77 77 73 Respiratory Rate 18 18 Blood Pressure Pulse Oximetry Oxygen Delivery 12/16/24 04:00 12/16/24 04:01 12/16/24 08:00 Temperature 36.2 C L Pulse Rate 68 63 Respiratory Rate 17 Blood Pressure 104/60 Pulse Oximetry 100 Oxygen Delivery Room Air 12/16/24 08:00 12/16/24 08:00 12/16/24 08:54 Temperature 36.4 C L Pulse Rate 75 57 L 75 Respiratory Rate 16 Blood Pressure 126/67 Pulse Oximetry 96 Oxygen Delivery 12/16/24 12:00 Temperature Pulse Rate 80 Respiratory Rate Blood Pressure Pulse Oximetry Oxygen Delivery Exam 2 Const: General: cooperative, healthy appearing and comfortable O rientation/consciousness: oriented to person, oriented to place and oriented to time HENMT: Head: normal to inspection Ears: hearing grossly normal bilaterally Eyes: General: appearance normal, both eyes and all related structures Neck: Neck: normal visual inspection Chest: Chest palpation & inspection: normal inspection of the chest Resp: Effort & Inspection: normal respiratory effort and able to speak in complete sentences Auscultation: crackles, no rales, no rhonchi, no wheezes and lung sounds not diminished Other: No wheezes currently Cardio: Jugular venous distension: no JVD GI: Inspection: normal to inspection GI Palp: No abdominal tenderness Skin: General skin exam: normal color Neuro: General: oriented to person, oriented to place and oriented to time Extrem: General: normal to inspection and no edema Psych: Appearance: grossly normal Results Laboratory Findings 12/16/24 08:48 12/16/24 08:48 Abnormal lab findings: Abnormal Labs 12/15/24 12/15/24 12/16/24 18:13 19:22 08:48 WBC 14.4 H 13.4 H RBC 3.39 L 2.99 L Hgb 10.6 L 9.6 L Hct 33.8 L 30.0 L MCV 100.3 H MCHC 31.4 L Neut % (Auto) 75.4 H Lymph % (Auto) 14.7 L [place] % (Auto) 9.3 H [place] # (Auto) 1.3 H Abs Immat Gran (auto) 0.05 H Absolute Neuts (auto) 10.8 H VBG pH 7.423 H* VBG pCO2 39.4 L VBG pO2 < 27.0 L Sodium 134 L 135 L Chloride 97 L BUN 19 H Glucose 187 H Total Protein 8.7 H
--- NOTE | 2024-12-16 13:51 | ECHO_ITS ---
Patient Info Name: Qing Thomas Age: 69 years : 1955 Gender: Female Ht: 68 in Wt: 160 lbs BSA: 1.87 m2 HR: 80 bpm BP: 126 / 67 mmHg Heart Rhythm: Sinus Rhythm Technical Quality: Fair Exam Date: 12/16/2024 2:17 PM Patient Status: I Admit Date: 12/15/2024 Exam Type: CA echo dop color flow w con Complete two-dimensional, color flow and Doppler transthoracic echocardiogram is performed with contrast to opacify the left ventricle and to improve the deliniation of the left ventricle endocardial borders. Staff Referring Physician: Earl Rodriguez Acrobatic Rigger: Disha Chávez Attending Provider: Alexa Swenson DO Contrast/Agitated Saline Contrast/Ag. Saline: Definity Amount: 2.00 ml Administered By: Disha Chávez Existing IV Access: Yes IV Access Condition: patent with no signs of infiltration Summary 1. Left ventricular chamber dimension is normal. 2. Left ventricular systolic function is hyperdynamic, estimated at >70. 3. There is mildly increased left ventricular wall thickness. 4. The left ventricular diastolic function is grade I diastolic dysfunction. 5. Left atrial chamber dimension is mildly enlarged. 6. There is mild mitral valve regurgitation. 7. There is mild tricuspid valve regurgitation. 8. Mild pulmonary hypertension, estimated pulmonary arterial systolic pressure is 36 mmHg. Left Ventricle Left ventricular chamber dimension is normal. Left ventricular systolic function is hyperdynamic, estimated at >70. There is mildly increased left ventricular wall thickness. The left ventricular diastolic function is grade I diastolic dysfunction. Right Ventricle Right ventricular chamber dimension is normal. Right ventricular systolic function is normal. Left Atria Left atrial chamber dimension is mildly enlarged. Right Atria Right atrial chamber dimension is normal. Atrial Septum Intact interatrial septum visualized by color flow imaging. Aortic Valve The aortic valve is trileaflet. There is mild aortic valve sclerosis. There is no aortic valve stenosis. There is trace aortic valve regurgitation. Pulmonic Valve The pulmonic valve is normal. There is no pulmonic valve stenosis. There is trace pulmonic regurgitation. Mitral Valve The mitral valve has normal leaflets. There is no mitral valve stenosis. There is mild mitral valve regurgitation. Tricuspid Valve The tricuspid valve leaflets are normal. There is no significant tricuspid valve stenosis. There is mild tricuspid valve regurgitation. Mild pulmonary hypertension, estimated pulmonary arterial systolic pressure is 36 mmHg. Pericardium/Pleural The pericardium appears normal. There is no pericardial effusion. Inferior Vena Cava Normal inferior vena cava with <50% collapse upon inspiration consistent with elevated right atrial pressure, 10 mmHg. Aorta The aortic root size at the sinus of Valsalva is normal. Left Ventricular Outflow Tract Name Value Normal LVOT 2D LVOT Diameter 1.9 cm LVOT Doppler LVOT Peak Velocity 118 cm/s LVOT Peak Gradient 6 mmHg LVOT Mean Gradient 3 mmHg LVOT VTI 28 cm LVOT VTI/AV VTI Ratio 0.7 LVOT Stroke Volume 78 ml LVOT CO 5.6 l/min LVOT CI 3.0 l/min/m2 Pulmonic Valve Name Value Normal RVOT Doppler RVOT Peak Velocity 86 cm/s RVOT Peak Gradient 3 mmHg PV Doppler PV Peak Velocity 145 cm/s PV Peak Gradient 8 mmHg Mitral Valve Name Value Normal MV Diastolic Function MV E Peak Velocity 81 cm/s MV A Peak Velocity 110 cm/s MV E/A 0.7 MV Decel Time (PW) 182 ms MV Annular TDI MV E/e' (Septal) 13.7 MV E/e' (Lateral) 10.4 MV E/e' (Average) 12.1 Tricuspid Valve Name Value Normal TV Regurgitation Doppler TR Peak Velocity 254 cm/s TR Peak Gradient 24 mmHg Estimated PAP/RSVP RA Pressure 10 mmHg <=5 PA Systolic Pressure 36 mmHg <36 RV Systolic Pressure 36 mmHg <36 TV Annular TDI TV Lateral Marylou s' Velocity 18.6 cm/s >=9.5 Aorta Name Value Normal Ascending Aorta Ao Root Diameter (MM) 3.2 cm Ao Root Diam Index (MM) 1.7 cm/m2 Aortic Valve Name Value Normal AV Doppler AV Peak Velocity 196 cm/s AV Peak Gradient 15 mmHg AV Mean Gradient 7 mmHg AV VTI 40 cm AV Area (Cont Eq VTI) 2.0 cm2 >=3.0 AV Area (Cont Eq Manuel) 1.7 cm2 AV DI (Manuel) 0.60 AV Regurgitation 2D LVOT Area 2.7 cm2 Ventricles Name Value Normal LV Dimensions 2D/MM IVS Diastolic Thickness (2D) 1.1 cm 0.6-1.0 LVID Diastole (2D) 4.1 cm 3.8-5.2 LVIW Diastolic Thickness (2D) 1.1 cm 0.6-0.9 LVID Systole (2D) 2.5 cm 2.2-3.5 LVOT Diameter 1.9 cm LV Mass (2D Cubed) 153.89 g 67.00-162.00 LV Mass Index (2D Cubed) 82 g/m2 43-95 Relative Wall Thickness (2D) 0.56 <=0.42 LV Fractional Shortening/Ejection Fraction 2D/MM LV Fractional Shortening (2D) 39 % 27-45 LV EF (2D Teichholz) 70 % LV Diastolic Volume (4C MOD) 79 ml LV EF (4C MOD) 79 % LV Diastolic Volume (2C MOD) 61 ml LV EF (2C MOD) 74 % LV Diastolic Volume (BP MOD) 72 ml 46-106 LV Diastolic Volume Index (BP MOD) 38 ml/m2 29-61 LV Systolic Volume (BP MOD) 16 ml 14-42 LV Systolic Volume Index (BP MOD) 9 ml/m2 8-24 LV EF (BP MOD) 78 % 54-74 LV Diastolic Length (4C) 7.2 cm LV Systolic Length (4C) 4.9 cm LV Stroke Volume (4C MOD) 63 ml Atria Name Value Normal LA Dimensions LA Dimension (MM) 5.0 cm 2.7-3.8 LA Volume (4C A-L) 72 ml LA Volume (BP A-L) 77 ml RA Dimensions RA Area (4C) 17.4 cm2 <=18.0 Report Signatures
[2024-12-16] MEDS: PERFLUTREN LIPID MICROSPHERES 1.5 ML VIAL DILUTED TO 10 ML TOTAL VOLUME IV PUSH (15:00)
--- NOTE | 2024-12-16 15:16 | IVDEFINITY ---
Prior to administration of IV Definity the patient was educated on the risks and benefits of the imaging enhancing agent including potential adverse side effects. The patient verbalized understanding. Allergies were verified. No exclusion criteria were identified and at least one of the following inclusion criteria were met: 1) physician request, 2) patient technically difficult to image (per the [place] [employer] guidelines of two or more segments not discernable within the apical view), or 3) questionable left ventricular function. ?
[2024-12-16] MEDS: ATORVASTATIN 40 MG TABLET PO (16:20)
[2024-12-16] MEDS: LORATADINE 10 MG TABLET PO (16:20)
[2024-12-16] MEDS: TIZANIDINE HCL 4 MG TABLET PO (20:10)
[2024-12-16] MEDS: guaiFENesin 12 HR 600 MG TABCR 1200 MG PO (20:10)
[2024-12-16] MEDS: FLUTICASONE PROPIONATE 0.05% NA SPR 16 GM BTL (*BKC) 1 SPRAY NASAL (20:11)
[2024-12-17] VITALS (15 sets, daily range): BP systolic 136–166; BP diastolic 69–90; PULSE 62–79; RESP 16–20; TEMP 36.1–36.7; O2SAT 96–100
[2024-12-17] MEDS: IPRATROPIUM 0.5 MG/ALBUTEROL SULFATE 2.5 MG AMPUL.NEB 3 ML INHALATION ×2 (03:05→08:09)
[2024-12-17 06:00] LABS: Basophils Percent Auto 0.2 % (0.2-1.2); Hematocrit 28.1 % (37.0-47.0); Hemoglobin 8.8 g/dL (12.0-15.0); Immature Granulocyte Absolute 0.13 K/mm3 (0.00-0.031); Immature Granulocyte Percent A 0.9 % (0-0.5); Lymphocytes Absolute Auto 1.84 K/mm3 (0.9-3.2); Lymphocytes Percent Auto 13.3 % (18.3-44.2); Mean Corpuscular HGB Conc 31.3 g/dl (32-36); Mean Corpuscular Hemoglobin 31.9 pg (26-34); Mean Corpuscular Volume 101.8 fl (80-100); Mean Platelet Volume 10.4 fl (7.4-10.4); Monocytes Absolute Auto 1.2 K/mm3 (0.1-0.6); Monocytes Percent Auto 8.8 % (2.6-8.5); Neutrophils Absolute Auto 10.6 K/mm3 (1.3-6.7); Neutrophils Percent Auto 76.8 % (45.5-73.1); Platelet Count Result 306 k/mm3 (150-375); Red Blood Count 2.76 M/mm3 (4.2-5.4); Red Cell Distribution Width 12.2 % (11.5-14.5); White Blood Count 13.8 K/mm3 (4.5-10.0)
[2024-12-17] MEDS: METOPROLOL SUCCINATE EXT REL 50 MG TABCR 150 MG PO ×2 (06:05→16:59)
[2024-12-17 06:06] LABS: Alanine Aminotransferase 16 U/L (6-35); Albumin Level 3.5 g/dL (3.5-5.1); Alkaline Phosphatase 59 U/L (38-126); Anion Gap 9 mmol/L (4-12); Aspartate Amino Transferase 26 U/L (14-36); Bilirubin,Total 0.2 mg/dL (0.2-1.3); Blood Urea Nitrogen 25 mg/dL (7-17); Calcium 8.7 mg/dL (8.4-10.2); Carbon Dioxide 25 mmol/L (22-30); Chloride 102 mmol/L (98-107); Estimated CRCL calculation 52 ml/min; Estimated Glomerular Filt Rate 59; Glucose 162 mg/dL (65-110); Magnesium 1.4 mg/dL (1.6-2.3); Sodium 136 mmol/L (137-145)
[2024-12-17] MEDS: LEVOTHYROXINE SODIUM 100 MCG TABLET PO (06:06)
[2024-12-17] MEDS: LEVOTHYROXINE SODIUM 75 MCG TABLET PO (06:06)
[2024-12-17] MEDS: LOSARTAN POTASSIUM 50 MG TABLET PO ×2 (06:06→16:59)
[2024-12-17] MEDS: predniSONE 20 MG TABLET 40 MG PO (07:52)
[2024-12-17] MEDS: ASPIRIN 81 MG ENTERIC TABLET PO (07:52)
[2024-12-17] MEDS: busPIRone HCL 10 MG TABLET PO (07:52)
[2024-12-17] MEDS: LORATADINE 10 MG TABLET PO (07:52)
[2024-12-17] MEDS: guaiFENesin 12 HR 600 MG TABCR 1200 MG PO ×2 (07:53→21:12)
[2024-12-17] MEDS: NICOTINE (*PBKC) 21 MG PATCH 1 PATCH TRANSDERM (07:53)
[2024-12-17] MEDS: ENOXAPARIN 40 MG/0.4 ML SYRINGE SUB-Q (07:54)
[2024-12-17] MEDS: SUCRALFATE 1 GM TABLET PO ×2 (07:54→15:14)
[2024-12-17] MEDS: FLUTICASONE PROPIONATE 0.05% NA SPR 16 GM BTL (*BKC) 1 SPRAY NASAL ×2 (07:58→21:21)
[2024-12-17] MEDS: DOXYCYCLINE 100 MG/NS 100 ML 100 MG/100 ML BAG IVPB (09:23)
--- NOTE | 2024-12-17 09:57 | PM.PNPUL ---
Progress Note: A&P Assessment and Plan (1) COPD (chronic obstructive pulmonary disease): Code(s): J44.9 - Chronic obstructive pulmonary disease, unspecified Status: Acute Assessment and Plan: Regarding her COPD, she has a 38 pack year tobacco use, quit in 2018., she has been vaping for the last 7 years. She has been exposed to secondhand smoke from her parents and from her current . She was given this diagnosis a month and half ago when she was admitted to the hospital in [place]. Patient was told she had COPD when she left the hospital and was prescribed albuterol nebulizers p.r.n. and air supra 90-80 to take 2 to 3 times a day. Over the last 7 years the patient is dyspnea on exertion has worsened from 7 blocks to 1/2 a block. She says she can only walk half a block now because of pain rather than shortness of breath. She has no rest shortness of breath. She denies chronic cough and chronic phlegm production. CT scan of the chest on 12/15/2024 demonstrates mild apical predominant paraseptal emphysema. the patient tells me she has never had pulmonary function testing. Currently the patient presents 12/15/24 after painting primer in room with 5 days worsening shortness of breath, cough, wheezing, fever and worsening green phlegm. She was treated with a COPD exacerbation with steroids, bronchodilators and antibiotics. 12/16/2024: Currently the patient tells me that she has improved. She says her cough is 50% better. Her phlegm production is improved and 50% back to baseline. She does not have any wheezing. Currently she is on room air with saturations 99%. Plan: Agree with treatment for possible COPD exacerbation. Patient currently on prednisone 40 mg p.o. q.day, day 2 of steroids. Agree with albuterol ipratropium nebulizers q.6 hours. Agree with ceftriaxone and doxycycline both day 2. I will send urine Legionella, urine pneumococcal, mycoplasma IgM and respiratory pathogen panel looking for etiologies of infection. The patient tells me she has difficult time expectorating and I will add guaifenesin 1200 mg p.o. b.i.d. I will send alpha 1 anti trypsin genotype and level. Patient also states she has sinus congestion and rhinorrhea. she has responded to antihistamines in the past and I will give her loratadine 10 mg p.o. q.day. she has responded to Flonase in the past and I will prescribe Flonase 1 spray each nostril q.12 hours. Goal saturation 90-94%, currently the patient is on room air. 12/17/2024: Patient tells me she is improved compared to yesterday. She says her breathing is 50% back to her baseline. Her cough is 60% back to her baseline and her phlegm now is light yellow rather than green. Her sinus drainage is improved. She is afebrile. White blood cell count 13.8. Creatinine 0.94. Plan: Continue prednisone 40 mg p.o. q.day, day 3 of steroids, will discontinue albuterol ipratropium nebulizers q.[address] the patient on Anoro Ellipta. Agree with ceftriaxone and doxycycline both day 3. urine Legionella, urine pneumococcal, mycoplasma IgM and respiratory pathogen panel pending. Continue guaifenesin 1200 mg p.o. b.i.d. sinus congestion has improved with loratadine 10 q.day and Flonase 1 spray each nostril b.i.d.. Will continue. Discussed with Dr. Cooper. Will follow with you. (2) ILD (interstitial lung disease): Code(s): J84.9 - Interstitial pulmonary disease, unspecified Status: Acute Assessment and Plan: Patient is followed by Rheumatology and carries a diagnosis of rheumatoid arthritis. She had a back surgery 1984 and there was mention of ankylosing spondylitis. She has fibromyalgia. Patient has been on methotrexate and is currently on injectable medicine that she does not know the name of. The patient tells me she has had CT scans of the chest previously but has never been told she had any interstitial lung disease or scarring. 10/15/24: CT scan of the chest with mild to moderate peripheral and basilar dependent reticulations with honeycombing and mild lower lobe traction bronchiectasis. In my opinion this consistent with apical predominant paraseptal emphysema with a typical UIP CT pattern. Etiology of patient's interstitial lung disease includes autoimmune interstitial lung disease, IPF, and or methotrexate lung toxicity. Plan: Patient tells me she will not follow up at [facility] but will follow-up with her primary care team in [facility]. 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 She will need serial CT scans and PFTs to assess for progression of this interstitial lung disease as an outpatient. (3) Obstructive sleep apnea on CPAP: Code(s): G47.33 - Obstructive sleep apnea (adult) (pediatric) Status: Acute Assessment and Plan: Regarding her obstructive sleep apnea the patient was diagnosed 10 years ago and has been on auto PAP she believes 5 to 10 with 3 L bleed in and she wears a nasal pillow. Her DME company is [employer]. 12/16/24: Plan: tonight will attempt to wear Hospital auto PAP 5 to 15 with 3 L bleed in fullface mask. 12/17/2024: Patient wore the hospital auto PAP 5-15 with 3 L bleed in. She says than mask felt different than her home nasal cushion mask. Plan: Patient says she will continue try to wear the hospital auto PAP tonight. Subjective Date/time seen: 12/17/24 09:57 Interval history: 12/16/2024: This is a new pulmonary consult for P. 69-year-old with a history of COPD, LEX on BiPAP, hypertension, Rheumatoid arthritis, possible ankylosing spondylitis, hyperlipidemia, hypothyroidism, GERD, alcoholic pancreatitis, upper GI bleed with possible esophageal ulcers and recent pneumonia. Regarding her COPD, she has a 38 pack year tobacco use, quit in 2018., she has been vaping for the last 7 years. She has been exposed to secondhand smoke from her parents and from her current . She was given this diagnosis a month and half ago when she was admitted to the hospital in [place]. Patient was told she had COPD when she left the hospital and was prescribed albuterol nebulizers p.r.n. and air supra 90-80 to take 2 to 3 times a day. Over the last 7 years the patient is dyspnea on exertion has worsened from 7 blocks to 1/2 a block. She says she can only walk half a block now because of pain rather than shortness of breath. She has no rest shortness of breath. She denies chronic cough and chronic phlegm production. Regarding her obstructive sleep apnea the patient was diagnosed 10 years ago and has been on auto PAP she believes 5-10 with 3 L bleed in and she wears a nasal pillow. Her DME company is [employer]. regarding her rheumatoid arthritis she was given a formal diagnosis 3-4 years ago. Both of her parents have rheumatoid arthritis. Patient was treated 5 years ago with methotrexate for 1-1 and half years and this was discontinued because it was not helping her. She then was referred to a different snow plow tractor operator who started her on an injection and she has been on a weekly injection for the last year to year and a half with improvement. Her symptoms include joint pain. 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 She has had a left knee operation and right shoulder operation. Patient also had a fall and had a left hip operation. She takes multiple bursts of prednisone the last of which was 4-5 months ago. Patient admitted to a hospital in [place] from 10/06/2024 through 10/28/2024. Patient tells me she had a heart attack, acute kidney injury, pancreatitis, pneumonia, GI bleed with ulcers in her esophagus and stomach. Patient was never intubated but on supplemental oxygen. Patient was recovering well from her hospitalization in [place]. Patient smoked tobacco from age [age] at 1 pack per day for a total of 38 pack years. Patient was exposed to secondhand smoke from both her parents. Patient is currently spoke exposed to secondhand smoke from her . For the last 7 years the patient has been smoking electronic cigarettes. She does not smoke marijuana. 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 Approximately 12/10/2024 the patient was painting a house with primer and developed shortness of breath, cough and wheezing. Over the next few days she developed green phlegm and a fever. Her symptoms worsened and she presented to the emergency room on 12/15/2024. 12/15/2024: Patient presented to the emergency room department with 4 days history of cough, worsening shortness of breath. Blood pressure 144/82, heart rate 73, respirations 18, room air saturations 98%. White blood cell count 14.4, eosinophils 0%. Creatinine 0.94. Venous room air blood gas 7.42/39 less than 27. COVID influenza, RSV RT PCR assay negative. CT scan of the chest with mild apical predominant paraseptal emphysema. Mild to moderate peripheral and basilar dependent reticulations with honeycombing and mild lower lobe traction bronchiectasis. In my opinion this consistent with apical predominant paraseptal emphysema with a typical UIP CT pattern. patient was treated with ceftriaxone, doxycycline, bronchodilators and dexamethasone 10 mg IV push. 12/16/2024: Currently the patient tells me that she has improved. She says her cough is 50% better. Her phlegm production is improved and 50% back to baseline. She does not have any wheezing. Currently she is on room air with saturations 99%. 12/17/2024: Patient tells me she is improved compared to yesterday. She says her breathing is 50% back to her baseline. Her cough is 60% back to her baseline and her phlegm now is light yellow rather than green. Her sinus drainage is improved. She is afebrile. White blood cell count 13.8. Creatinine 0.94. DATA: 12/16/24: Echo Summary 1. Left ventricular chamber dimension is normal. 2. Left ventricular systolic function is hyperdynamic, estimated at >70. 3. There is mildly increased left ventricular wall thickness. 4. The left ventricular diastolic function is grade I diastolic dysfunction. 5. Left atrial chamber dimension is mildly enlarged. 6. There is mild mitral valve regurgitation. 7. There is mild tricuspid valve regurgitation. 8. Mild pulmonary hypertension, estimated pulmonary arterial systolic pressure is 36 mmHg. Right Ventricle Right ventricular chamber dimension is normal. Right ventricular systolic function is normal. Right Atria Right atrial chamber dimension is normal. Atrial Septum Intact interatrial septum visualized by color flow imaging. 12/15/24: CT diagnostic chest wo con Ordering provider: Earl Rodriguez MD History: 69 years Female with . Eval PNA . Comparison: None. FINDINGS: VISUALIZED THORACIC INLET: Normal. MEDIASTINUM: Aorta/coronary arteries: Mild atheromatous disease. Ascending aorta measures 4 seen. Heart/other: The heart is slightly enlarged. Lymph nodes: Precarinal lymph nodes are seen with the largest measures 1.6 cm. LUNGS: Emphysematous changes seen in the upper and lower lobes. Superimpose pneumonitis in the lower lobes is not excluded. No pulmonary nodules or masses. No effusions. No pneumothorax. VISUALIZED UPPER ABDOMEN: Adenoma in the left adrenal gland is seen measuring 1.1 cm. No follow-up advised unless clinically warranted. Thickened wall of the stomach. Otherwise, the visualized upper abdomen is normal. MUSCULOSKELETAL: Soft tissues: The superficial soft tissues are normal. Bones: Dextroscoliosis. Age appropriate degenerative changes of the spine. Healing rib fractures are seen in the right lower thorax. Severe osteoarthritic changes of the right shoulder. IMPRESSION: 1. Fibrotic changes of the lungs in the lower and upper lobes. Possibility of superimposed pneumonitis is not excluded in the lower lobes. Clinical correlation and follow-up advised. 2. Mediastinal lymphadenopathy. 3. Healing fractures in the right lower thorax. Review of Systems Constitutional: Constitutional: Reports no additional constitutional complaints Eyes: Eyes: Reports no additional eye complaints ENT: Reports system reviewed and no additional complaints, except as documented Cardiovascular: Cardiovascular: Reports no additional cardiovascular complaints Respiratory: Respiratory: Reports no additional respiratory complaints Gastrointestinal: Gastrointestinal: Reports no additional gastrointestinal complaints Musculoskeletal: Musculoskeletal: Reports no additional musculoskeletal complaints Neurologic: Reports system reviewed and no additional complaints, except as documented Psychiatric: Psychiatric: Reports no additional psychiatric complaints Endocrine: Endocrine: Reports no additional endocrine complaints Hematologic/Lymphatic: Hematologic/Lymphatic: Reports no additional hematologic/lymphatic complaints Allergic/Immunologic: Allergic/Immunologic: Reports no additional allergic/immunologic complaints Exam Const: General: cooperative, healthy appearing and comfortable Orientation/consciousness: oriented to person, oriented to place and oriented to time HENMT: Head: normal to inspection Ears: hearing grossly normal bilaterally Eyes: General: appearance normal, both eyes and all related structures Neck: Neck: normal visual inspection Chest: Chest palpation & inspection: normal inspection of the chest Resp: Effort & Inspection: normal respiratory effort and able to speak in complete sentences Auscultation: crackles, no rales, no rhonchi, no wheezes and lung sounds not diminished Other: Few end expiratory wheezes Cardio: Jugular venous distension: no JVD GI: Inspection: normal to inspection Skin: General skin exam: normal color Neuro: General: oriented to person, oriented to place and oriented to time Extrem: General: normal to inspection and no edema Psych: Appearance: grossly normal Objective Data Vital Signs Vital Signs: Vital Signs - 24 hr 12/16/24 12:00 12/16/24 12:00 12/16/24 13:45 Temperature 36.1 C L Pulse Rate 80 73 74 Respiratory Rate 20 18 Blood Pressure 146/64 H Pulse Oximetry 100 Oxygen Delivery 12/16/24 13:56 12/16/24 16:00 12/16/24 16:00 Temperature 36.4 C L Pulse Rate 75 75 81 Respiratory Rate 18 18 Blood Pressure 162/94 H Pulse Oximetry 97 Oxygen Delivery 12/16/24 19:40 12/16/24 20:00 12/16/24 20:05 Temperature 36.2 C L Pulse Rate 71 71 Respiratory Rate 17 Blood Pressure 140/81 Pulse Oximetry 100 Oxygen Delivery Room Air 12/16/24 20:34 12/16/24 20:45 12/16/24 23:09 Temperature 36.0 C L Pulse Rate 83 85 63 Respiratory Rate 18 16 16 Blood Pressure 145/69 H Pulse Oximetry 98 Oxygen Delivery 12/17/24 00:00 12/17/24 03:05 12/17/24 03:12 Temperature Pulse Rate 70 62 65 Respiratory Rate 16 16 Blood Pressure Pulse Oximetry Oxygen Delivery 12/17/24 03:48 12/17/24 04:00 12/17/24 06:05 Temperature 36.2 C L Pulse Rate 65 66 68 Respiratory Rate 17 Blood Pressure 138/69 Pulse Oximetry 100 Oxygen Delivery 12/17/24 08:00 12/17/24 08:00 12/17/24 08:00 Temperature 36.1 C L Pulse Rate 77 74 Respiratory Rate 18 Blood Pressure 151/84 H Pulse Oximetry 96 Oxygen Delivery Room Air 12/17/24 08:05 12/17/24 08:15 12/17/24 08:45 Temperature Pulse Rate 72 75 77 Respiratory Rate 20 20 Blood Pressure Pulse Oximetry Oxygen Delivery Intake/Output Intake/Output: Intake & Output 12/14/24 12/15/24 12/16/24 12/17/24 23:59 23:59 23:59 23:59 Intake Total 150 920 240 Output Total 400 Balance 150 520 240 Meds/Results Medications: Active Medications Generic Name Dose Route Start Last Admin Trade Name Freq PRN Reason Stop Dose Admin Albuterol/Ipratropium 3 ml 12/16/24 02:00 12/17/24 08:09 Ipratropium 0.5 Mg/Albuterol Sulfate 2.5 Mg Ampul.Neb 3 Ml INHALATION 3 ml Q6HRT KARISSA Administration Aspirin 81 mg 12/16/24 09:00 12/17/24 07:52 Aspirin 81 Mg Enteric Tablet PO 81 mg DAILY KARISSA Administration Atorvastatin Calcium 40 mg 12/16/24 18:00 12/16/24 16:20 Atorvastatin 40 Mg Tablet PO 40 mg QPM KARISSA Administration Buspirone HCl 10 mg 12/16/24 09:00 12/17/24 07:52 Buspirone Hcl 10 Mg Tablet PO 10 mg DAILY KARISSA Administration Enoxaparin Sodium 40 mg 12/16/24 13:20 12/17/24 07:54 Enoxaparin 40 Mg/0.4 Ml Syringe SUB-Q 40 mg DAILY KARISSA Administration Fluticasone Propionate 1 spray 12/16/24 21:00 12/17/24 07:58 Fluticasone Propionate 0.05% Na Spr 16 Gm Btl (*Bkc) NASAL 1 spray Q12HR KARISSA Administration Guaifenesin 1,200 mg 12/16/24 21:00 12/17/24 07:53 Guaifenesin 12 Hr 600 Mg Tabcr PO 1,200 mg Q12HR KARISSA Administration Ceftriaxone Sodium 1 gm in 50 mls @ 100 mls/hr 12/16/24 21:00 12/16/24 20:11 Rocephin 1 Gm/Ns 50 Ml IVPB 100 mls/hr Q24H KARISSA Administration Doxycycline Hyclate 100 mg in 100 mls @ 100 mls/hr 12/16/24 10:00 12/17/24 09:23 Vibramycin 100 Mg/Ns 100 Ml IVPB 100 mls/hr Q12H KARISSA Administration Levothyroxine Sodium 100 mcg 12/16/24 06:30 12/17/24 06:06 Levothyroxine Sodium 100 Mcg Tablet PO 100 mcg DAILY@0630 KARISSA Administration Levothyroxine Sodium 75 mcg 12/16/24 06:30 12/17/24 06:06 Levothyroxine Sodium 75 Mcg Tablet PO 75 mcg DAILY@0630 KARISSA Administration Loratadine 10 mg 12/16/24 16:00 12/17/24 07:52 Loratadine 10 Mg Tablet PO 10 mg QAM KARISSA Administration Losartan Potassium 50 mg 12/17/24 06:00 12/17/24 06:06 Losartan Potassium 50 Mg Tablet PO 50 mg Q12H KARISSA Administration Metoprolol Succinate 150 mg 12/17/24 06:00 12/17/24 06:05 Metoprolol Succinate Ext Rel 50 Mg Tabcr PO 150 mg Q12H KARISSA Administration Nicotine 1 patch 12/16/24 09:00 12/17/24 07:53 Nicotine (*Pbkc) 21 Mg Patch TRANSDERM 1 patch QAM KARISSA Administration Prednisone 40 mg 12/17/24 08:00 12/17/24 07:52 Prednisone 20 Mg Tablet PO 40 mg DAILY@0800 KARISSA Administration Sucralfate 1 gm 12/16/24 07:00 12/17/24 07:54 Sucralfate 1 Gm Tablet PO 1 gm 0700,1600 KARISSA Administration Tizanidine HCl 4 mg 12/16/24 21:00 12/16/24 20:10 Tizanidine Hcl 4 Mg Tablet PO 4 mg HS KARISSA Administration Radiology Results: ITS Impressions Chest X-Ray 12/15/24 18:52 IMPRESSION: Left basilar atelectasis versus pneumonia. Chest CT 12/15/24 21:04 IMPRESSION: 1. Fibrotic changes of the lungs in the lower and upper lobes. Possibility of superimposed pneumonitis is not excluded in the lower lobes. Clinical correlation and follow-up advised. 2. Mediastinal lymphadenopathy. 3. Healing fractures in the right lower thorax. Labs Labs: Laboratory Results - last 24 hr 12/17/24 05:34 WBC 13.8 H RBC 2.76 L Hgb 8.8 L Hct 28.1 L MCV 101.8 H MCH 31.9 MCHC 31.3 L RDW 12.2 Plt Count 306 MPV 10.4 Immature Gran % (Auto) 0.9 H Neut % (Auto) 76.8 H Lymph % (Auto) 13.3 L [place] % (Auto) 8.8 H Eos % (Auto) 0.0 Baso % (Auto) 0.2 Lymph # (Auto) 1.84 [place] # (Auto) 1.2 H Eos # (Auto) 0.0 Baso # (Auto) 0.0 Abs Immat Gran (auto) 0.13 H Absolute Neuts (auto) 10.6 H Absolute Nucleated RBC 0.000 Nucleated RBC % 0.0 Sodium 136 L Potassium 4.0 Chloride 102 Carbon Dioxide 25 Anion Gap 9 BUN 25 H Creatinine 0.94 Estim Creat Clear Calc 52 Estimated GFR 59 Glucose 162 H Lactic Acid 2.0 Calcium 8.7 Magnesium 1.4 L Total Bilirubin 0.2 AST 26 ALT 16 Alkaline Phosphatase 59 Total Protein 7.0 Albumin 3.5
[2024-12-17] MEDS: UMECLIDINIUM/VILANTEROL 62.5-25 MCG ELLIPTA 1 PUFF INHALATION (10:28)
--- NOTE | 2024-12-17 12:52 | P.PNIM_ITS ---
Progress Note: A&P Assessment and Plan (1) Community acquired bilateral lower lobe pneumonia: Code(s): J18.9 - Pneumonia, unspecified organism Status: Acute (2) COPD with lower respiratory infection: Code(s): J44.0 - Chronic obstructive pulmonary disease with (acute) lower respiratory infection Status: Acute (3) Hypothyroidism: Qualifiers: Hypothyroidism type: unspecified Qualified Code(s): E03.9 - Hypothyroidism, unspecified Code(s): E03.9 - Hypothyroidism, unspecified Status: Acute (4) Hyponatremia: Code(s): E87.1 - Hypo-osmolality and hyponatremia Status: Acute (5) Cigarette smoker: Code(s): F17.210 - Nicotine dependence, cigarettes, uncomplicated Status: Acute (6) Obstructive sleep apnea on CPAP: Code(s): G47.33 - Obstructive sleep apnea (adult) (pediatric) Status: Acute Plan Interstitial lung disease CT chest showed fibrotic changes Continue Rocephin and Azithromycin Continue Prednisone [id number], mycoplasma and Legionella antigens pendings Pulmonology following COPD with chronic respiratory failure on 3 liters at baseline continue Steroid and Duoneb treatment monitor Hypothyroidism continue home meds Hyponatremia resolved Na 135 LEX Continue Home Auto PAP with 3 liters bleed per Pulm Quit vaping recently DVT prophylaxis on Sq Lovenox For discharge tomorrow Subjective Date/time seen: 12/17/24 12:52 Interval history: Comfortable at bedside Discussed with Pulm and he noted to monitor one more day Review of Systems Review of Systems: 12 systems were reviewed with pertinent positives and negatives per HPI. Except as documented in the HPI, all other systems were reviewed and are negative. Exam Narrative: Weight 72.7 kg BMI 24.4 General: alert and comfortable Eyes: EOMI, PERRLA ENNT External ears normal, Neck is supple, no masses, Respiratory systems: crackles bilaterally Cardiovascular S1, S2, normal rhythm, no murmur, rub, or gallop; no thrill or palpable murmurs on palpation. Gastrointestinal: soft, non-tender, and non-distended abdomen with no masses; BS present Skin: no rash, lesions, ulcerations, subcutaneous nodules or induration Musculoskeletal: no abnormality and no tenderness, normal ROM Neurologic: Alert and oriented x3, non focal Mental Status Exam: normal affect Const: Other: Thin body habitus, appears older than stated age HENMT: Other: Mucous membranes are moist, no oral pharyngeal erythema, positive conjunctival pallor, no scleral icterus crowded posterior oropharynx Eyes: Other: Pupils are equal and reactive, no scleral icterus positive conjunctival pallor Neck: Other: No JVD Resp: Other: Coarse crackles bilateral posterior lung brown lower lobes, conversational tachypnea Cardio: Other: Regular rate, regular rhythm, 2+ bilateral radial pedal pulses no JVD GI: Other: Soft, nontender, nondistended, positive bowel sounds Back/Spine/Pelvis: Other: Mild thoracic kyphosis Skin: Other: Non jaundice, no pallor Neuro: Other: Alert oriented, speech is clear, no facial asymmetry, no localizing neurologic deficits noted during the course of conversation the patient sat up without assistance and was cross-legged on the bed Extrem: Other: No clubbing, cyanosis or edema Psych: Other: Anxious, pleasant, cooperative Objective Data Vital Signs Vital Signs: Vital Signs - 24 hr 12/16/24 13:45 12/16/24 13:56 12/16/24 16:00 Temperature Pulse Rate 74 75 75 Respiratory Rate 18 18 Blood Pressure Pulse Oximetry Oxygen Delivery 12/16/24 16:00 12/16/24 19:40 12/16/24 20:00 Temperature 97.5 F L 97.1 F L Pulse Rate 81 71 71 Respiratory Rate 18 17 Blood Pressure 162/94 H 140/81 Pulse Oximetry 97 100 Oxygen Delivery 12/16/24 20:05 12/16/24 20:34 12/16/24 20:45 Temperature Pulse Rate 83 85 Respiratory Rate 18 16 Blood Pressure Pulse Oximetry Oxygen Delivery Room Air 12/16/24 23:09 12/17/24 00:00 12/17/24 03:05 Temperature 96.8 F L Pulse Rate 63 70 62 Respiratory Rate 16 16 Blood Pressure 145/69 H Pulse Oximetry 98 Oxygen Delivery 12/17/24 03:12 12/17/24 03:48 12/17/24 04:00 Temperature 97.1 F L Pulse Rate 65 65 66 Respiratory Rate 16 17 Blood Pressure 138/69 Pulse Oximetry 100 Oxygen Delivery 12/17/24 06:05 12/17/24 08:00 12/17/24 08:00 Temperature Pulse Rate 68 77 Respiratory Rate Blood Pressure Pulse Oximetry Oxygen Delivery Room Air 12/17/24 08:00 12/17/24 08:05 12/17/24 08:15 Temperature 97.0 F L Pulse Rate 74 72 75 Respiratory Rate 18 20 20 Blood Pressure 151/84 H Pulse Oximetry 96 Oxygen Delivery 12/17/24 08:45 12/17/24 10:29 Temperature Pulse Rate 77 70 Respiratory Rate 20 Blood Pressure Pulse Oximetry Oxygen Delivery Intake/Output Intake/Output: Intake & Output 12/14/24 12/15/24 12/16/24 12/17/24 23:59 23:59 23:59 23:59 Intake Total 150 920 340 Output Total 400 Balance 150 520 340 Meds/Results Medications: Active Medications Generic Name Dose Route Start Last Admin Trade Name Freq PRN Reason Stop Dose Admin Aspirin 81 mg 12/16/24 09:00 12/17/24 07:52 Aspirin 81 Mg Enteric Tablet PO 81 mg DAILY KARISSA Administration Atorvastatin Calcium 40 mg 12/16/24 18:00 12/16/24 16:20 Atorvastatin 40 Mg Tablet PO 40 mg QPM KARISSA Administration Buspirone HCl 10 mg 12/16/24 09:00 12/17/24 07:52 Buspirone Hcl 10 Mg Tablet PO 10 mg DAILY KAIRSSA Administration Enoxaparin Sodium 40 mg 12/16/24 13:20 12/17/24 07:54 Enoxaparin 40 Mg/0.4 Ml Syringe SUB-Q 40 mg DAILY KARISSA Administration Fluticasone Propionate 1 spray 12/16/24 21:00 12/17/24 07:58 Fluticasone Propionate 0.05% Na Spr 16 Gm Btl (*Bkc) NASAL 1 spray Q12HR KARISSA Administration Guaifenesin 1,200 mg 12/16/24 21:00 12/17/24 07:53 Guaifenesin 12 Hr 600 Mg Tabcr PO 1,200 mg Q12HR KARISSA Administration Ceftriaxone Sodium 1 gm in 50 mls @ 100 mls/hr 12/16/24 21:00 12/16/24 20:11 Rocephin 1 Gm/Ns 50 Ml IVPB 100 mls/hr Q24H KARISSA Administration Doxycycline Hyclate 100 mg in 100 mls @ 100 mls/hr 12/16/24 10:00 12/17/24 10:23 Vibramycin 100 Mg/Ns 100 Ml IVPB Infused Q12H KARISSA Infusion Levothyroxine Sodium 100 mcg 12/16/24 06:30 12/17/24 06:06 Levothyroxine Sodium 100 Mcg Tablet PO 100 mcg DAILY@0630 KARISSA Administration Levothyroxine Sodium 75 mcg 12/16/24 06:30 12/17/24 06:06 Levothyroxine Sodium 75 Mcg Tablet PO 75 mcg DAILY@0630 KARISSA Administration Loratadine 10 mg 12/16/24 16:00 12/17/24 07:52 Loratadine 10 Mg Tablet PO 10 mg QAM KARISSA Administration Losartan Potassium 50 mg 12/17/24 06:00 12/17/24 06:06 Losartan Potassium 50 Mg Tablet PO 50 mg Q12H KARISSA Administration Metoprolol Succinate 150 mg 12/17/24 06:00 12/17/24 06:05 Metoprolol Succinate Ext Rel 50 Mg Tabcr PO 150 mg Q12H KARISSA Administration Nicotine 1 patch 12/16/24 09:00 12/17/24 07:53 Nicotine (*Pbkc) 21 Mg Patch TRANSDERM 1 patch QAM KARISSA Administration Prednisone 40 mg 12/17/24 08:00 12/17/24 07:52 Prednisone 20 Mg Tablet PO 40 mg DAILY@0800 KARISSA Administration Sucralfate 1 gm 12/16/24 07:00 12/17/24 07:54 Sucralfate 1 Gm Tablet PO 1 gm 0700,1600 [facility] Administration Tizanidine HCl 4 mg 12/16/24 21:00 12/16/24 20:10 Tizanidine Hcl 4 Mg Tablet PO 4 mg HS KARISSA Administration Umeclidinium/Vilanterol 1 puff 12/17/24 10:05 12/17/24 10:28 Umeclidinium/Vilanterol 62.5-25 Mcg Ellipta INHALATION 1 puff DAILYRT KARISSA Administration Radiology Results: ITS Impressions Chest X-Ray 12/15/24 18:52 IMPRESSION: Left basilar atelectasis versus pneumonia. Chest CT 12/15/24 21:04 IMPRESSION: 1. Fibrotic changes of the lungs in the lower and upper lobes. Possibility of superimposed pneumonitis is not excluded in the lower lobes. Clinical correlation and follow-up advised. 2. Mediastinal lymphadenopathy. 3. Healing fractures in the right lower thorax. Labs Labs: Laboratory Results - last 24 hr 12/17/24 05:34 WBC 13.8 H RBC 2.76 L Hgb 8.8 L Hct 28.1 L MCV 101.8 H MCH 31.9 MCHC 31.3 L RDW 12.2 Plt Count 306 MPV 10.4 Immature Gran % (Auto) 0.9 H Neut % (Auto) 76.8 H Lymph % (Auto) 13.3 L Ripley % (Auto) 8.8 H Eos % (Auto) 0.0 Baso % (Auto) 0.2 Lymph # (Auto) 1.84 [place] # (Auto) 1.2 H Eos # (Auto) 0.0 Baso # (Auto) 0.0 Abs Immat Gran (auto) 0.13 H Absolute Neuts (auto) 10.6 H Absolute Nucleated RBC 0.000 Nucleated RBC % 0.0 Sodium 136 L Potassium 4.0 Chloride 102 Carbon Dioxide 25 Anion Gap 9 BUN 25 H Creatinine 0.94 Estim Creat Clear Calc 52 Estimated GFR 59 Glucose 162 H Lactic Acid 2.0 Calcium 8.7 Magnesium 1.4 L Total Bilirubin 0.2 AST 26 ALT 16 Alkaline Phosphatase 59 Total Protein 7.0 Albumin 3.5 Quality VTE Prophylaxis VTE prophylaxis: pharmacologic ordered (Lovenox 40 mg subQ daily.)
[2024-12-17] MEDS: ATORVASTATIN 40 MG TABLET PO (16:59)
[2024-12-17] MEDS: TIZANIDINE HCL 4 MG TABLET PO (21:12)
[2024-12-17] MEDS: DOXYCYCLINE 100 MG/NS 100 ML 100 MG/100 ML BAG 75 MG IVPB (22:12)
[2024-12-18] VITALS (7 sets, daily range): BP systolic 151–160; BP diastolic 79–95; PULSE 65–77; RESP 16–18; TEMP 36.2–36.6; O2SAT 97–99
[2024-12-18] MEDS: LOSARTAN POTASSIUM 50 MG TABLET PO ×2 (05:52→17:46)
[2024-12-18] MEDS: LEVOTHYROXINE SODIUM 100 MCG TABLET PO (05:52)
[2024-12-18] MEDS: LEVOTHYROXINE SODIUM 75 MCG TABLET PO (05:52)
[2024-12-18] MEDS: METOPROLOL SUCCINATE EXT REL 50 MG TABCR 150 MG PO ×2 (05:52→17:46)
[2024-12-18 06:29] LABS: Basophils Absolute Auto 0.1 K/mm3 (0.0-0.1); Basophils Percent Auto 0.7 % (0.2-1.2); Hemoglobin 9.9 g/dL (12.0-15.0); Immature Granulocyte Absolute 0.43 K/mm3 (0.00-0.031); Immature Granulocyte Percent A 2.8 % (0-0.5); Lymphocytes Absolute Auto 3.96 K/mm3 (0.9-3.2); Mean Corpuscular HGB Conc 30.9 g/dl (32-36); Mean Corpuscular Hemoglobin 31.5 pg (26-34); Mean Corpuscular Volume 101.9 fl (80-100); Mean Platelet Volume 9.8 fl (7.4-10.4); Monocytes Absolute Auto 1.7 K/mm3 (0.1-0.6); Monocytes Percent Auto 11.3 % (2.6-8.5); Neutrophils Percent Auto 59.2 % (45.5-73.1); Platelet Count Result 397 k/mm3 (150-375); Red Blood Count 3.14 M/mm3 (4.2-5.4); Red Cell Distribution Width 12.4 % (11.5-14.5); White Blood Count 15.3 K/mm3 (4.5-10.0)
[2024-12-18 06:46] LABS: Alanine Aminotransferase 25 U/L (6-35); Albumin Level 3.8 g/dL (3.5-5.1); Alkaline Phosphatase 66 U/L (38-126); Anion Gap 8 mmol/L (4-12); Aspartate Amino Transferase 39 U/L (14-36); Bilirubin,Total 0.2 mg/dL (0.2-1.3); Blood Urea Nitrogen 24 mg/dL (7-17); Carbon Dioxide 27 mmol/L (22-30); Chloride 104 mmol/L (98-107); Estimated CRCL calculation 54 ml/min; Estimated Glomerular Filt Rate > 60; Glucose 84 mg/dL (65-110); Magnesium 1.3 mg/dL (1.6-2.3); Potassium 3.8 mmol/L (3.4-5.0); Sodium 139 mmol/L (137-145); Total Protein 7.6 g/dL (6.3-8.2)
[2024-12-18] MEDS: SUCRALFATE 1 GM TABLET PO ×2 (06:54→16:24)
[2024-12-18 08:18] LABS: Alpha-1-Antitrypsin, QN 243 mg/dL (83-199)
[2024-12-18] MEDS: busPIRone HCL 10 MG TABLET PO (08:20)
[2024-12-18] MEDS: ASPIRIN 81 MG ENTERIC TABLET PO (08:20)
[2024-12-18] MEDS: predniSONE 20 MG TABLET 40 MG PO (08:20)
[2024-12-18] MEDS: LORATADINE 10 MG TABLET PO (08:21)
[2024-12-18] MEDS: guaiFENesin 12 HR 600 MG TABCR 1200 MG PO (08:21)
[2024-12-18] MEDS: NICOTINE (*PBKC) 21 MG PATCH 1 PATCH TRANSDERM (08:22)
[2024-12-18] MEDS: ENOXAPARIN 40 MG/0.4 ML SYRINGE SUB-Q (08:22)
[2024-12-18] MEDS: FLUTICASONE PROPIONATE 0.05% NA SPR 16 GM BTL (*BKC) 1 SPRAY NASAL (08:23)
[2024-12-18] MEDS: UMECLIDINIUM/VILANTEROL 62.5-25 MCG ELLIPTA 1 PUFF INHALATION (09:00)
--- NOTE | 2024-12-18 09:43 | PM.PNPUL ---
Progress Note: A&P Assessment and Plan (1) COPD (chronic obstructive pulmonary disease): Code(s): J44.9 - Chronic obstructive pulmonary disease, unspecified Status: Acute Assessment and Plan: Regarding her COPD, she has a 38 pack year tobacco use, quit in 2018., she has been vaping for the last 7 years. She has been exposed to secondhand smoke from her parents and from her current . She was given this diagnosis a month and half ago when she was admitted to the hospital in [place]. Patient was told she had COPD when she left the hospital and was prescribed albuterol nebulizers p.r.n. and air supra 90-80 to take 2 to 3 times a day. Over the last 7 years the patient is dyspnea on exertion has worsened from 7 blocks to 1/2 a block. She says she can only walk half a block now because of pain rather than shortness of breath. She has no rest shortness of breath. She denies chronic cough and chronic phlegm production. CT scan of the chest on 12/15/2024 demonstrates mild apical predominant paraseptal emphysema. the patient tells me she has never had pulmonary function testing. Currently the patient presents 12/15/24 after painting primer in room with 5 days worsening shortness of breath, cough, wheezing, fever and worsening green phlegm. She was treated with a COPD exacerbation with steroids, bronchodilators and antibiotics. 12/16/2024: Currently the patient tells me that she has improved. She says her cough is 50% better. Her phlegm production is improved and 50% back to baseline. She does not have any wheezing. Currently she is on room air with saturations 99%. Plan: Agree with treatment for possible COPD exacerbation. Patient currently on prednisone 40 mg p.o. q.day, day 2 of steroids. Agree with albuterol ipratropium nebulizers q.6 hours. Agree with ceftriaxone and doxycycline both day 2. I will send urine Legionella, urine pneumococcal, mycoplasma IgM and respiratory pathogen panel looking for etiologies of infection. The patient tells me she has difficult time expectorating and I will add guaifenesin 1200 mg p.o. b.i.d. I will send alpha 1 anti trypsin genotype and level. Patient also states she has sinus congestion and rhinorrhea. she has responded to antihistamines in the past and I will give her loratadine 10 mg p.o. q.day. she has responded to Flonase in the past and I will prescribe Flonase 1 spray each nostril q.12 hours. Goal saturation 90-94%, currently the patient is on room air. 12/17/2024: Patient tells me she is improved compared to yesterday. She says her breathing is 50% back to her baseline. Her cough is 60% back to her baseline and her phlegm now is light yellow rather than green. Her sinus drainage is improved. She is afebrile. White blood cell count 13.8. Creatinine 0.94. Plan: Continue prednisone 40 mg p.o. q.day, day 3 of steroids, will discontinue albuterol ipratropium nebulizers q.[address] the patient on Anoro Ellipta. Agree with ceftriaxone and doxycycline both day 3. urine Legionella, urine pneumococcal, mycoplasma IgM and respiratory pathogen panel pending. Continue guaifenesin 1200 mg p.o. b.i.d. sinus congestion has improved with loratadine 10 q.day and Flonase 1 spray each nostril b.i.d.. Will continue. 12/18/2024. Patient tells me she continues to improve. States she is feeling 70% back to her normal. Her dyspnea on exertion is normal and she has been walking in the hallway. Her cough persists with no hemoptysis. Her sinuses are better today than they have been in the last year. She is afebrile. White blood cell count 15.3, creatinine 0.89. She is on room air with saturations 100%. Last night she wore the hospital fullface mask auto PAP 5-15 with 3 L bleed in and said she did well. Tells me she is ready to go home. from a pulmonary perspective patient is ready to be discharged home on these pulmonary medications: Prednisone 40 mg p.o. q.day last dose on 12/22/2024 Levaquin 750 mg p.o. q.day last dose on 12/22/2024 Anoro Ellipta 62.5-25 at 1 puff q.day Rescue albuterol 2 puffs q.4 hours p.r.n. shortness of breath or wheezing. Oxygen at rest and with activity her formal home O2 assessment which I have ordered. When she naps or sleeps: Home auto PAP with 3 L bleed in. Patient with a history of rheumatoid arthritis on Enbrel injection weekly. I have told her she should not take additional Enbrel until she is completely recovered from this COPD exacerbation with possible infection. I have told her to discuss restarting the Enbrel with her burglar alarm operator before she takes any additional injections. Patient [place] away from [facility] and at this time she will follow-up with her PCP in [place] and her burglar alarm operator in [place]. I have told her to tell her teams that she has a new diagnosis of interstitial lung disease. I have talked to the bedside nurse who will coordinate a disc with the images of the CT of the chest and the chest x-ray from this admission. Discussed with Dr. Ho. Will sign off. Call with questions. (2) ILD (interstitial lung disease): Code(s): J84.9 - Interstitial pulmonary disease, unspecified Status: Acute Assessment and Plan: Patient is followed by Rheumatology and carries a diagnosis of rheumatoid arthritis. She had a back surgery 1984 and there was mention of ankylosing spondylitis. She has fibromyalgia. Patient has been on methotrexate and is currently on injectable medicine that she does not know the name of. The patient tells me she has had CT scans of the chest previously but has never been told she had any interstitial lung disease or scarring. 12/15/24: CT scan of the chest with mild to moderate peripheral and basilar dependent reticulations with honeycombing and mild lower lobe traction bronchiectasis. In my opinion this consistent with apical predominant paraseptal emphysema with a typical UIP CT pattern. Etiology of patient's interstitial lung disease includes autoimmune interstitial lung disease, IPF, and or methotrexate or enbrel lung toxicity. Plan: Patient tells me she will not follow up at [facility] but will follow-up with her primary care team in [facility]. 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 She will need serial CT scans and PFTs to assess for progression of this interstitial lung disease as an outpatient. 12/16/24: Patient continues to improve with treatment for COPD exacerbation. 12/18/2024: Patient has new diagnosis of interstitial lung disease and in my opinion this is consistent with apical predominant paraseptal emphysema and a typical UIP P CT pattern. Patient has a history of rheumatoid arthritis on Enbrel. She will need follow-up to assess for ILD progression as an outpatient. See above. (3) Obstructive sleep apnea on CPAP: Code(s): G47.33 - Obstructive sleep apnea (adult) (pediatric) Status: Acute Assessment and Plan: Regarding her obstructive sleep apnea the patient was diagnosed 10 years ago and has been on auto PAP she believes 5 to 10 with 3 L bleed in and she wears a nasal pillow. Her DME company is [employer] in [place]. 12/16/24: Plan: tonight will attempt to wear Hospital auto PAP 5 to 15 with 3 L bleed in fullface mask. 12/17/2024: Patient wore the hospital auto PAP 5-15 with 3 L bleed in. She says than mask felt different than her home nasal cushion mask. Plan: Patient says she will continue try to wear the hospital auto PAP tonight. 12/18/24: Patient tolerated the hospital auto PAP 5-15 with 3 L bleed in a fullface mask. She feels a fullface mask actually is more comfortable than her nasal pillows. Subjective Date/time seen: 12/18/24 09:43 Interval history: 12/16/2024: This is a new pulmonary consult for [facility]IP. 69-year-old with a history of COPD, LEX on BiPAP, hypertension, Rheumatoid arthritis, possible ankylosing spondylitis, hyperlipidemia, hypothyroidism, GERD, alcoholic pancreatitis, upper GI bleed with possible esophageal ulcers and recent pneumonia. Regarding her COPD, she has a 38 pack year tobacco use, quit in 2018., she has been vaping for the last 7 years. She has been exposed to secondhand smoke from her parents and from her current . She was given this diagnosis a month and half ago when she was admitted to the hospital in [place]. Patient was told she had COPD when she left the hospital and was prescribed albuterol nebulizers p.r.n. and air supra 90-80 to take 2 to 3 times a day. Over the last 7 years the patient is dyspnea on exertion has worsened from 7 blocks to 1/2 a block. She says she can only walk half a block now because of pain rather than shortness of breath. She has no rest shortness of breath. She denies chronic cough and chronic phlegm production. Regarding her obstructive sleep apnea the patient was diagnosed 10 years ago and has been on auto PAP she believes 5-10 with 3 L bleed in and she wears a nasal pillow. Her [email or web address] company is [employer] in [place]. regarding her rheumatoid arthritis she was given a formal diagnosis 3-4 years ago. Both of her parents have rheumatoid arthritis. Patient was treated 5 years ago with methotrexate for 1-1 and half years and this was discontinued because it was not helping her. She then was referred to a different burglar alarm operator who started her on an injection and she has been on a weekly injection for the last year to year and a half with improvement. Her symptoms include joint pain. 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 She has had a left knee operation and right shoulder operation. Patient also had a fall and had a left hip operation. She takes multiple bursts of prednisone the last of which was 4-5 months ago. Patient admitted to a hospital in [place] from 10/06/2024 through 10/28/2024. Patient tells me she had a heart attack, acute kidney injury, pancreatitis, pneumonia, GI bleed with ulcers in her esophagus and stomach. Patient was never intubated but on supplemental oxygen. Patient was recovering well from her hospitalization in [place]. Patient smoked tobacco from age [age] at 1 pack per day for a total of 38 pack years. Patient was exposed to secondhand smoke from both her parents. Patient is currently spoke exposed to secondhand smoke from her . For the last 7 years the patient has been smoking electronic cigarettes. She does not smoke marijuana. 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 Approximately 12/10/2024 the patient was painting a house with primer and developed shortness of breath, cough and wheezing. Over the next few days she developed green phlegm and a fever. Her symptoms worsened and she presented to the emergency room on 12/15/2024. 12/15/2024: Patient presented to the emergency room department with 4 days history of cough, worsening shortness of breath. Blood pressure 144/82, heart rate 73, respirations 18, room air saturations 98%. White blood cell count 14.4, eosinophils 0%. Creatinine 0.94. Venous room air blood gas 7.42/39 less than 27. COVID influenza, RSV RT PCR assay negative. CT scan of the chest with mild apical predominant paraseptal emphysema. Mild to moderate peripheral and basilar dependent reticulations with honeycombing and mild lower lobe traction bronchiectasis. In my opinion this consistent with apical predominant paraseptal emphysema with a typical UIP CT pattern. patient was treated with ceftriaxone, doxycycline, bronchodilators and dexamethasone 10 mg IV push. 12/16/2024: Currently the patient tells me that she has improved. She says her cough is 50% better. Her phlegm production is improved and 50% back to baseline. She does not have any wheezing. Currently she is on room air with saturations 99%. 12/17/2024: Patient tells me she is improved compared to yesterday. She says her breathing is 50% back to her baseline. Her cough is 60% back to her baseline and her phlegm now is light yellow rather than green. Her sinus drainage is improved. She is afebrile. White blood cell count 13.8. Creatinine 0.94. 12/18/2024. Patient tells me she continues to improve. States she is feeling 70% back to her normal. Her dyspnea on exertion is normal and she has been walking in the hallway. Her cough persists with no hemoptysis. Her sinuses are better today than they have been in the last year. She is afebrile. White blood cell count 15.3, creatinine 0.89. She is on room air with saturations 100%. Last night she wore the hospital fullface mask auto PAP 5-15 with 3 L bleed in and said she did well. Tells me she is ready to go home. DATA: 12/16/24: Echo Summary 1. Left ventricular chamber dimension is normal. 2. Left ventricular systolic function is hyperdynamic, estimated at >70. 3. There is mildly increased left ventricular wall thickness. 4. The left ventricular diastolic function is grade I diastolic dysfunction. 5. Left atrial chamber dimension is mildly enlarged. 6. There is mild mitral valve regurgitation. 7. There is mild tricuspid valve regurgitation. 8. Mild pulmonary hypertension, estimated pulmonary arterial systolic pressure is 36 mmHg. Right Ventricle Right ventricular chamber dimension is normal. Right ventricular systolic function is normal. Right Atria Right atrial chamber dimension is normal. Atrial Septum Intact interatrial septum visualized by color flow imaging. 12/15/24: CT diagnostic chest wo con Ordering provider: Earl Rodriguez MD History: 69 years Female with . Eval PNA . Comparison: None. FINDINGS: VISUALIZED THORACIC INLET: Normal. MEDIASTINUM: Aorta/coronary arteries: Mild atheromatous disease. Ascending aorta measures 4 seen. Heart/other: The heart is slightly enlarged. Lymph nodes: Precarinal lymph nodes are seen with the largest measures 1.6 cm. LUNGS: Emphysematous changes seen in the upper and lower lobes. Superimpose pneumonitis in the lower lobes is not excluded. No pulmonary nodules or masses. No effusions. No pneumothorax. VISUALIZED UPPER ABDOMEN: Adenoma in the left adrenal gland is seen measuring 1.1 cm. No follow-up advised unless clinically warranted. Thickened wall of the stomach. Otherwise, the visualized upper abdomen is normal. MUSCULOSKELETAL: Soft tissues: The superficial soft tissues are normal. Bones: Dextroscoliosis. Age appropriate degenerative changes of the spine. Healing rib fractures are seen in the right lower thorax. Severe osteoarthritic changes of the right shoulder. IMPRESSION: 1. Fibrotic changes of the lungs in the lower and upper lobes. Possibility of superimposed pneumonitis is not excluded in the lower lobes. Clinical correlation and follow-up advised. 2. Mediastinal lymphadenopathy. 3. Healing fractures in the right lower thorax. Review of Systems Constitutional: Constitutional: Reports no additional constitutional complaints Eyes: Eyes: Reports no additional eye complaints ENT: Reports system reviewed and no additional complaints, except as documented Cardiovascular: Cardiovascular: Reports no additional cardiovascular complaints Respiratory: Respiratory: Reports no additional respiratory complaints Gastrointestinal: Gastrointestinal: Reports no additional gastrointestinal complaints Musculoskeletal: Musculoskeletal: Reports no additional musculoskeletal complaints Neurologic: Reports system reviewed and no additional complaints, except as documented Psychiatric: Psychiatric: Reports no additional psychiatric complaints Endocrine: Endocrine: Reports no additional endocrine complaints Hematologic/Lymphatic: Hematologic/Lymphatic: Reports no additional hematologic/lymphatic complaints Allergic/Immunologic: Allergic/Immunologic: Reports no additional allergic/immunologic complaints Exam Const: General: cooperative, healthy appearing and comfortable Orientation/consciousness: oriented to person, oriented to place and oriented to time HENMT: Head: normal to inspection Ears: hearing grossly normal bilaterally Eyes: General: appearance normal, both eyes and all related structures Neck: Neck: normal visual inspection Chest: Chest palpation & inspection: normal inspection of the chest Resp: Effort & Inspection: normal respiratory effort and able to speak in complete sentences Auscultation: crackles, no rales, no rhonchi, no wheezes and lung sounds not diminished Other: Dry crackles throughout Cardio: Jugular venous distension: no JVD GI: Inspection: normal to inspection Skin: General skin exam: normal color Neuro: General: oriented to person, oriented to place and oriented to time Extrem: General: normal to inspection and no edema Psych: Appearance: grossly normal Objective Data Vital Signs Vital Signs: Vital Signs - 24 hr 12/17/24 10:29 12/17/24 12:00 12/17/24 12:00 Temperature 36.2 C L Pulse Rate 70 76 69 Respiratory Rate 20 16 Blood Pressure 136/73 Pulse Oximetry 97 Oxygen Delivery 12/17/24 16:00 12/17/24 16:00 12/17/24 16:59 Temperature 36.2 C L Pulse Rate 73 79 71 Respiratory Rate 18 Blood Pressure 148/83 H Pulse Oximetry 98 Oxygen Delivery 12/17/24 20:00 12/17/24 20:00 12/17/24 20:00 Temperature 36.7 C Pulse Rate 73 73 Respiratory Rate 18 Blood Pressure 166/90 H Pulse Oximetry 98 Oxygen Delivery Room Air 12/18/24 00:00 12/18/24 00:00 12/18/24 04:00 Temperature 36.3 C L 36.2 C L Pulse Rate 65 68 67 Respiratory Rate 18 18 Blood Pressure 153/79 H 156/85 H Pulse Oximetry 97 99 Oxygen Delivery 12/18/24 04:00 12/18/24 05:52 12/18/24 08:00 Temperature 36.6 C Pulse Rate 65 67 65 Respiratory Rate 18 Blood Pressure 160/95 H Pulse Oximetry 98 Oxygen Delivery Intake/Output Intake/Output: Intake & Output 12/15/24 12/16/24 12/17/24 12/18/24 23:59 23:59 23:59 23:59 Intake Total 150 970 850 570 Output Total 400 600 850 Balance 150 570 250 -280 Meds/Results Medications: Active Medications Generic Name Dose Route Start Last Admin Trade Name Freq PRN Reason Stop Dose Admin Aspirin 81 mg 12/16/24 09:00 12/18/24 08:20 Aspirin 81 Mg Enteric Tablet PO 81 mg DAILY KARISSA Administration Atorvastatin Calcium 40 mg 12/16/24 18:00 12/17/24 16:59 Atorvastatin 40 Mg Tablet PO 40 mg QPM KARISSA Administration Buspirone HCl 10 mg 12/16/24 09:00 12/18/24 08:20 Buspirone Hcl 10 Mg Tablet PO 10 mg DAILY KARISSA Administration Enoxaparin Sodium 40 mg 12/16/24 13:20 12/18/24 08:22 Enoxaparin 40 Mg/0.4 Ml Syringe SUB-Q 40 mg DAILY KARISSA Administration Fluticasone Propionate 1 spray 12/16/24 21:00 12/18/24 08:23 Fluticasone Propionate 0.05% Na Spr 16 Gm Btl (*Bkc) NASAL 1 spray Q12HR KARISSA Administration Guaifenesin 1,200 mg 12/16/24 21:00 12/18/24 08:21 Guaifenesin 12 Hr 600 Mg Tabcr PO 1,200 mg Q12HR KARISSA Administration Ceftriaxone Sodium 1 gm in 50 mls @ 100 mls/hr 12/16/24 21:00 12/17/24 22:04 Rocephin 1 Gm/Ns 50 Ml IVPB Infused Q24H KARISSA Infusion Doxycycline Hyclate 100 mg in 100 mls @ 100 mls/hr 12/16/24 10:00 12/17/24 23:32 Vibramycin 100 Mg/Ns 100 Ml IVPB Infused Q12H KARISSA Infusion Levothyroxine Sodium 100 mcg 12/16/24 06:30 12/18/24 05:52 Levothyroxine Sodium 100 Mcg Tablet PO 100 mcg DAILY@0630 KARISSA Administration Levothyroxine Sodium 75 mcg 12/16/24 06:30 12/18/24 05:52 Levothyroxine Sodium 75 Mcg Tablet PO 75 mcg DAILY@0630 KARISSA Administration Loratadine 10 mg 12/16/24 16:00 12/18/24 08:21 Loratadine 10 Mg Tablet PO 10 mg QAM KARISSA Administration Losartan Potassium 50 mg 12/17/24 06:00 12/18/24 05:52 Losartan Potassium 50 Mg Tablet PO 50 mg Q12H KARISSA Administration Metoprolol Succinate 150 mg 12/17/24 06:00 12/18/24 05:52 Metoprolol Succinate Ext Rel 50 Mg Tabcr PO 150 mg Q12H KARISSA Administration Nicotine 1 patch 12/16/24 09:00 12/18/24 08:22 Nicotine (*Pbkc) 21 Mg Patch TRANSDERM 1 patch QAM KARISSA Administration Prednisone 40 mg 12/17/24 08:00 12/18/24 08:20 Prednisone 20 Mg Tablet PO 40 mg DAILY@0800 KARISSA Administration Sucralfate 1 gm 12/16/24 07:00 12/18/24 06:54 Sucralfate 1 Gm Tablet PO 1 gm 0700,1600 KARISSA Administration Tizanidine HCl 4 mg 12/16/24 21:00 12/17/24 21:12 Tizanidine Hcl 4 Mg Tablet PO 4 mg HS KARISSA Administration Umeclidinium/Vilanterol 1 puff 12/17/24 10:05 12/18/24 09:00 Umeclidinium/Vilanterol 62.5-25 Mcg Ellipta INHALATION 1 puff DAILYRT KARISSA Administration Radiology Results: ITS Impressions Chest X-Ray 12/15/24 18:52 IMPRESSION: Left basilar atelectasis versus pneumonia. Chest CT 12/15/24 21:04 IMPRESSION: 1. Fibrotic changes of the lungs in the lower and upper lobes. Possibility of superimposed pneumonitis is not excluded in the lower lobes. Clinical correlation and follow-up advised. 2. Mediastinal lymphadenopathy. 3. Healing fractures in the right lower thorax. Labs Labs: Laboratory Results - last 24 hr 12/17/24 12/18/24 05:34 06:12 WBC 15.3 H RBC 3.14 L Hgb 9.9 L Hct 32.0 L MCV 101.9 H MCH 31.5 MCHC 30.9 L RDW 12.4 Plt Count 397 H MPV 9.8 Immature Gran % (Auto) 2.8 H Neut % (Auto) 59.2 Lymph % (Auto) 26.0 [place] % (Auto) 11.3 H Eos % (Auto) 0.0 Baso % (Auto) 0.7 Lymph # (Auto) 3.96 H [place] # (Auto) 1.7 H Eos # (Auto) 0.0 Baso # (Auto) 0.1 Abs Immat Gran (auto) 0.43 H Absolute Neuts (auto) 9.0 H Absolute Nucleated RBC 0.000 Nucleated RBC % 0.0 Sodium 139 Potassium 3.8 Chloride 104 Carbon Dioxide 27 Anion Gap 8 BUN 24 H Creatinine 0.89 Estim Creat Clear Calc 54 Estimated GFR > 60 Glucose 84 Calcium 9.0 Magnesium 1.3 L Total Bilirubin 0.2 AST 39 H ALT 25 Alkaline Phosphatase 66 Total Protein 7.6 Albumin 3.8 [id number] 243 H
[2024-12-18] MEDS: DOXYCYCLINE 100 MG/NS 100 ML 100 MG/100 ML BAG IVPB (10:19)
--- NOTE | 2024-12-18 11:16 | PM.IMPN ---
Progress Note: A&P Assessment and Plan (1) Community acquired bilateral lower lobe pneumonia: Code(s): J18.9 - Pneumonia, unspecified organism Status: Acute (2) COPD with lower respiratory infection: Code(s): J44.0 - Chronic obstructive pulmonary disease with (acute) lower respiratory infection Status: Acute (3) Hypothyroidism: Qualifiers: Hypothyroidism type: unspecified Qualified Code(s): E03.9 - Hypothyroidism, unspecified Code(s): E03.9 - Hypothyroidism, unspecified Status: Acute (4) Hyponatremia: Code(s): E87.1 - Hypo-osmolality and hyponatremia Status: Acute (5) Cigarette smoker: Code(s): F17.210 - Nicotine dependence, cigarettes, uncomplicated Status: Acute (6) Obstructive sleep apnea on CPAP: Code(s): G47.33 - Obstructive sleep apnea (adult) (pediatric) Status: Acute Plan Interstitial lung disease CT chest showed fibrotic changes Continue Rocephin and Azithromycin Continue Prednisone [id number], mycoplasma and Legionella antigens pendings Pulmonology following COPD with chronic respiratory failure on 3 liters at baseline continue Steroid and Duoneb treatment monitor Hypothyroidism continue home meds Hyponatremia resolved Na 135 LEX Continue Home Auto PAP with 3 liters bleed per Pulm Quit vaping recently DVT prophylaxis on Sq Lovenox For discharge tomorrow Subjective Date/time seen: 12/18/24 11:16 Review of Systems Review of Systems: 12 systems were reviewed with pertinent positives and negatives per HPI. Except as documented in the HPI, all other systems were reviewed and are negative. Exam Narrative: Weight 72.7 kg BMI 24.4 General: alert and comfortable Eyes: EOMI, PERRLA ENNT External ears normal, Neck is supple, no masses, Respiratory systems: crackles bilaterally Cardiovascular S1, S2, normal rhythm, no murmur, rub, or gallop; no thrill or palpable murmurs on palpation. Gastrointestinal: soft, non-tender, and non-distended abdomen with no masses; BS present Skin: no rash, lesions, ulcerations, subcutaneous nodules or induration Musculoskeletal: no abnormality and no tenderness, normal ROM Neurologic: Alert and oriented x3, non focal Mental Status Exam: normal affect Const: Other: Thin body habitus, appears older than stated age HENMT: Other: Mucous membranes are moist, no oral pharyngeal erythema, positive conjunctival pallor, no scleral icterus crowded posterior oropharynx Eyes: Other: Pupils are equal and reactive, no scleral icterus positive conjunctival pallor Neck: Other: No JVD Resp: Other: Coarse crackles bilateral posterior lung brown lower lobes, conversational tachypnea Cardio: Other: Regular rate, regular rhythm, 2+ bilateral radial pedal pulses no JVD GI: Other: Soft, nontender, nondistended, positive bowel sounds Back/Spine/Pelvis: Other: Mild thoracic kyphosis Skin: Other: Non jaundice, no pallor Neuro: Other: Alert oriented, speech is clear, no facial asymmetry, no localizing neurologic deficits noted during the course of conversation the patient sat up without assistance and was cross-legged on the bed Extrem: Other: No clubbing, cyanosis or edema Psych: Other: Anxious, pleasant, cooperative Objective Data Vital Signs Vital Signs: Vital Signs - 24 hr 12/17/24 12:00 12/17/24 12:00 12/17/24 16:00 Temperature 97.1 F L Pulse Rate 76 69 73 Respiratory Rate 16 Blood Pressure 136/73 Pulse Oximetry 97 Oxygen Delivery 12/17/24 16:00 12/17/24 16:59 12/17/24 20:00 Temperature 97.1 F L 98.1 F Pulse Rate 79 71 73 Respiratory Rate 18 18 Blood Pressure 148/83 H 166/90 H Pulse Oximetry 98 98 Oxygen Delivery 12/17/24 20:00 12/17/24 20:00 12/18/24 00:00 Temperature 97.4 F L Pulse Rate 73 65 Respiratory Rate 18 Blood Pressure 153/79 H Pulse Oximetry 97 Oxygen Delivery Room Air 12/18/24 00:00 12/18/24 04:00 12/18/24 04:00 Temperature 97.2 F L Pulse Rate 68 67 65 Respiratory Rate 18 Blood Pressure 156/85 H Pulse Oximetry 99 Oxygen Delivery 12/18/24 05:52 12/18/24 08:00 12/18/24 08:20 Temperature 97.8 F Pulse Rate 67 65 Respiratory Rate 18 Blood Pressure 160/95 H Pulse Oximetry 98 Oxygen Delivery Room Air Intake/Output Intake/Output: Intake & Output 12/15/24 12/16/24 12/17/24 12/18/24 23:59 23:59 23:59 23:59 Intake Total 150 970 850 570 Output Total 400 600 850 Balance 150 570 250 -280 Meds/Results Medications: Active Medications Generic Name Dose Route Start Last Admin Trade Name Rameshq PRN Reason Stop Dose Admin Aspirin 81 mg 12/16/24 09:00 12/18/24 08:20 Aspirin 81 Mg Enteric Tablet PO 81 mg DAILY KARISSA Administration Atorvastatin Calcium 40 mg 12/16/24 18:00 12/17/24 16:59 Atorvastatin 40 Mg Tablet PO 40 mg QPM KARISSA Administration Buspirone HCl 10 mg 12/16/24 09:00 12/18/24 08:20 Buspirone Hcl 10 Mg Tablet PO 10 mg DAILY KARISSA Administration Enoxaparin Sodium 40 mg 12/16/24 13:20 12/18/24 08:22 Enoxaparin 40 Mg/0.4 Ml Syringe SUB-Q 40 mg DAILY KARISSA Administration Fluticasone Propionate 1 spray 12/16/24 21:00 12/18/24 08:23 Fluticasone Propionate 0.05% Na Spr 16 Gm Btl (*Bkc) NASAL 1 spray Q12HR KARISSA Administration Guaifenesin 1,200 mg 12/16/24 21:00 12/18/24 08:21 Guaifenesin 12 Hr 600 Mg Tabcr PO 1,200 mg Q12HR KARISSA Administration Ceftriaxone Sodium 1 gm in 50 mls @ 100 mls/hr 12/16/24 21:00 12/17/24 22:04 Rocephin 1 Gm/Ns 50 Ml IVPB Infused Q24H KARISSA Infusion Doxycycline Hyclate 100 mg in 100 mls @ 100 mls/hr 12/16/24 10:00 12/18/24 10:19 Vibramycin 100 Mg/Ns 100 Ml IVPB 100 mls/hr Q12H KARISSA Administration Levothyroxine Sodium 100 mcg 12/16/24 06:30 12/18/24 05:52 Levothyroxine Sodium 100 Mcg Tablet PO 100 mcg DAILY@0630 KARISSA Administration Levothyroxine Sodium 75 mcg 12/16/24 06:30 12/18/24 05:52 Levothyroxine Sodium 75 Mcg Tablet PO 75 mcg DAILY@0630 KARISSA Administration Loratadine 10 mg 12/16/24 16:00 12/18/24 08:21 Loratadine 10 Mg Tablet PO 10 mg QAM KARISSA Administration Losartan Potassium 50 mg 12/17/24 06:00 12/18/24 05:52 Losartan Potassium 50 Mg Tablet PO 50 mg Q12H KARISSA Administration Metoprolol Succinate 150 mg 12/17/24 06:00 12/18/24 05:52 Metoprolol Succinate Ext Rel 50 Mg Tabcr PO 150 mg Q12H KARISSA Administration Nicotine 1 patch 12/16/24 09:00 12/18/24 08:22 Nicotine (*Pbkc) 21 Mg Patch TRANSDERM 1 patch QAM KARISSA Administration Prednisone 40 mg 12/17/24 08:00 12/18/24 08:20 Prednisone 20 Mg Tablet PO 40 mg DAILY@0800 KARISSA Administration Sucralfate 1 gm 12/16/24 07:00 12/18/24 06:54 Sucralfate 1 Gm Tablet PO 1 gm 0700,1600 KARISSA Administration Tizanidine HCl 4 mg 12/16/24 21:00 12/17/24 21:12 Tizanidine Hcl 4 Mg Tablet PO 4 mg HS KARISSA Administration Umeclidinium/Vilanterol 1 puff 12/17/24 10:05 12/18/24 09:00 Umeclidinium/Vilanterol 62.5-25 Mcg Ellipta INHALATION 1 puff DAILYRT KARISSA Administration Radiology Results: ITS Impressions Chest X-Ray 12/15/24 18:52 IMPRESSION: Left basilar atelectasis versus pneumonia. Chest CT 12/15/24 21:04 IMPRESSION: 1. Fibrotic changes of the lungs in the lower and upper lobes. Possibility of superimposed pneumonitis is not excluded in the lower lobes. Clinical correlation and follow-up advised. 2. Mediastinal lymphadenopathy. 3. Healing fractures in the right lower thorax. Labs Labs: Laboratory Results - last 24 hr 12/17/24 12/18/24 05:34 06:12 WBC 15.3 H RBC 3.14 L Hgb 9.9 L Hct 32.0 L MCV 101.9 H MCH 31.5 MCHC 30.9 L RDW 12.4 Plt Count 397 H MPV 9.8 Immature Gran % (Auto) 2.8 H Neut % (Auto) 59.2 Lymph % (Auto) 26.0 [place] % (Auto) 11.3 H Eos % (Auto) 0.0 Baso % (Auto) 0.7 Lymph # (Auto) 3.96 H [place] # (Auto) 1.7 H Eos # (Auto) 0.0 Baso # (Auto) 0.1 Abs Immat Gran (auto) 0.43 H Absolute Neuts (auto) 9.0 H Absolute Nucleated RBC 0.000 Nucleated RBC % 0.0 Sodium 139 Potassium 3.8 Chloride 104 Carbon Dioxide 27 Anion Gap 8 BUN 24 H Creatinine 0.89 Estim Creat Clear Calc 54 Estimated GFR > 60 Glucose 84 Calcium 9.0 Magnesium 1.3 L Total Bilirubin 0.2 AST 39 H ALT 25 Alkaline Phosphatase 66 Total Protein 7.6 Albumin 3.8 [id number] 243 H Quality VTE Prophylaxis VTE prophylaxis: pharmacologic ordered (Lovenox 40 mg subQ daily.)
[2024-12-18] MEDS: MAGNESIUM SULF 2 GM/WATER 50ML 2 GM/50 ML BAG IVPB (12:11)
--- NOTE | 2024-12-18 17:18 | PM.DS ---
DS: Admitting Diagnosis Discharge Date 12/18/2024 Admitting Diagnosis Shortness of breath DS: Discharge Diagnosis Discharge Diagnosis (1) Community acquired bilateral lower lobe pneumonia: Code(s): J18.9 - Pneumonia, unspecified organism Status: Acute (2) COPD with lower respiratory infection: Code(s): J44.0 - Chronic obstructive pulmonary disease with (acute) lower respiratory infection Status: Acute (3) Hypothyroidism: Qualifiers: Hypothyroidism type: unspecified Qualified Code(s): E03.9 - Hypothyroidism, unspecified Code(s): E03.9 - Hypothyroidism, unspecified Status: Acute (4) Hyponatremia: Code(s): E87.1 - Hypo-osmolality and hyponatremia Status: Acute (5) Cigarette smoker: Code(s): F17.210 - Nicotine dependence, cigarettes, uncomplicated Status: Acute (6) Obstructive sleep apnea on CPAP: Code(s): G47.33 - Obstructive sleep apnea (adult) (pediatric) Status: Acute Plan Interstitial lung disease CT chest showed fibrotic changes Continue Rocephin and Azithromycin Continue Prednisone Wpzow-[id number]-Lrnlouonrsu, mycoplasma and Legionella antigens pendings Pulmonology following COPD with chronic respiratory failure on 3 liters at baseline continue Steroid and Duoneb treatment monitor Hypothyroidism continue home meds Hyponatremia resolved Na 135 LEX Continue Home Auto PAP with 3 liters bleed per Pulm Quit vaping recently DVT prophylaxis on Sq Lovenox For discharge tomorrow DS: Summary Hospital Course Hospital Course: 69-year-old female with a past medical history of anxiety, hyperlipidemia, hypertension, COPD hypothyroidism, GERD and recent pneumonia requiring hospitalization in [place] who presented to the ER with 4 days of productive cough and increasing shortness of breath. She reports that she was hospitalized in [place] for almost a month back in October. She had severe alcoholic pancreatitis, upper GI bleed with what sounds like esophageal ulcers, and pneumonia. She reports that about 4 days ago she began having a thick yellow-green sputum. She started drinking warm broth and increased her fluid intake. She reported that her sputum did thin out a little bit became more yellow but she is still having copious amounts of sputum. She has felt generally fatigued. She has had significant nausea. She was concerned she may be getting pneumonia and or pancreatitis again she thought that the mucus that was coming up may have been from the infection in her pancreas coming back upper throat. So she came into the ER for evaluation. She started having She was released from her job recently and since she has essentially now retired her and her have, to the area to visit with her sons. Her helped her oldest son purchased the apartment building the youngest son lives in and they are in the process of refurbishing the building. They have been painting and priming the [place]. In hindsight she thinks that this may have worsened some of her breathing. She denies any fevers or chills. Her COVID flu and RSV panel were negative in the ER. CT of the chest demonstrated old scarring but underlying infectious process could not be ruled out and she did have some mild leukocytosis. She reports feeling generally weak and run down. She reports significant improvement in her symptoms after she received Decadron and nebulizers in the ER. She wanted to be discharged home but given her history with she was encouraged to stay in the hospital. She reports that she has not been using her inhalers since they been in the area because she forgot her inhalers at home. Regarding her COPD, she has a 38 pack year tobacco use, quit in 2018., she has been vaping for the last 7 years. She has been exposed to secondhand smoke from her parents and from her current . She was given this diagnosis a month and half ago when she was admitted to the hospital in [place]. Patient was told she had COPD when she left the hospital and was prescribed albuterol nebulizers p.r.n. and air supra 90-80 to take 2 to 3 times a day. Over the last 7 years the patient is dyspnea on exertion has worsened from 7 blocks to 1/2 a block. She says she can only walk half a block now because of pain rather than shortness of breath. She has no rest shortness of breath. She denies chronic cough and chronic phlegm production. CT scan of the chest on 12/15/2024 demonstrates mild apical predominant paraseptal emphysema. I assumed the care on the day of discharge is 12/18/2024. Patient reports that she is taking care of her disabled and 1 of her son who she has schizophrenic. Due to stress patient drinks daily whiskey. Patient also smokes.Patient admitted to a hospital in [place] from 10/06/2024 through 10/28/2024. Patient tells she had a heart attack, acute kidney injury, pancreatitis, pneumonia, GI bleed with ulcers in her esophagus and stomach. Patient was never intubated but on supplemental oxygen. On the day of discharge, the patient was seen and examined. Vital signs were stable. Physical exam were stable and labs were reviewed at length. Discharge instructions, medications, and follow-up appointments were discussed with the patient at length and all day questions were answered. ER warnings were given. Patient tells me she will not follow up at [facility] but will follow-up with her primary care team in [facility]. She has a cutting machine tender helper and at this time and as per he will not send serologies for autoimmune disease. She will need serial CT scans and PFTs to assess for progression of this interstitial lung disease as an outpatient Status at Discharge Cognitive/behavioral status at discharge: Stable Time Spent with Patient Time attestation: Total time spent providing and/or coordinating discharge services: 45 minutes Exam Narrative: Weight 72.7 kg BMI 24.4 General: alert and comfortable Eyes: EOMI, PERRLA ENNT External ears normal, Neck is supple, no masses, Respiratory systems: crackles bilaterally Cardiovascular S1, S2, normal rhythm, no murmur, rub, or gallop; no thrill or palpable murmurs on palpation. Gastrointestinal: soft, non-tender, and non-distended abdomen with no masses; BS present Skin: no rash, lesions, ulcerations, subcutaneous nodules or induration Musculoskeletal: no abnormality and no tenderness, normal ROM Neurologic: Alert and oriented x3, non focal Mental Status Exam: normal affect Const: Other: Thin body habitus, appears older than stated age HENMT: Other: Mucous membranes are moist, no oral pharyngeal erythema, positive conjunctival pallor, no scleral icterus crowded posterior oropharynx Eyes: Other: Pupils are equal and reactive, no scleral icterus positive conjunctival pallor Neck: Other: No JVD Resp: Other: Coarse crackles bilateral posterior lung brown lower lobes, conversational tachypnea Cardio: Other: Regular rate, regular rhythm, 2+ bilateral radial pedal pulses no JVD GI: Other: Soft, nontender, nondistended, positive bowel sounds Back/Spine/Pelvis: Other: Mild thoracic kyphosis Skin: Other: Non jaundice, no pallor Neuro: Other: Alert oriented, speech is clear, no facial asymmetry, no localizing neurologic deficits noted during the course of conversation the patient sat up without assistance and was cross-legged on the bed Extrem: Other: No clubbing, cyanosis or edema Psych: Other: Anxious, pleasant, cooperative DS: Data Data Completed and Pending Labs on day of discharge: Labs from last 24 hours 12/18/24 12/17/24 06:12 05:34 WBC 15.3 H RBC 3.14 L Hgb 9.9 L Hct 32.0 L MCV 101.9 H MCH 31.5 MCHC 30.9 L RDW 12.4 Plt Count 397 H MPV 9.8 Immature Gran % (Auto) 2.8 H Neut % (Auto) 59.2 Lymph % (Auto) 26.0 [place] % (Auto) 11.3 H Eos % (Auto) 0.0 Baso % (Auto) 0.7 Lymph # (Auto) 3.96 H [place] # (Auto) 1.7 H Eos # (Auto) 0.0 Baso # (Auto) 0.1 Abs Immat Gran (auto) 0.43 H Absolute Neuts (auto) 9.0 H Absolute Nucleated RBC 0.000 Nucleated RBC % 0.0 Sodium 139 Potassium 3.8 Chloride 104 Carbon Dioxide 27 Anion Gap 8 BUN 24 H Creatinine 0.89 Estim Creat Clear Calc 54 Estimated GFR > 60 Glucose 84 Calcium 9.0 Magnesium 1.3 L Total Bilirubin 0.2 AST 39 H ALT 25 Alkaline Phosphatase 66 Total Protein 7.6 Albumin 3.8 Frioo-1-Acwzljnrszu 243 H Preliminary micro results at discharge 12/16/24 02:25 Sputum Culture - Preliminary Sputum Yeast isolated 12/15/24 21:10 Blood Culture - Preliminary Blood 12/15/24 21:05 Blood Culture - Preliminary Blood Imaging Radiologist's impression: ITS Impressions Chest X-Ray 12/15/24 18:52 IMPRESSION: Left basilar atelectasis versus pneumonia. Chest CT 12/15/24 21:04 IMPRESSION: 1. Fibrotic changes of the lungs in the lower and upper lobes. Possibility of superimposed pneumonitis is not excluded in the lower lobes. Clinical correlation and follow-up advised. 2. Mediastinal lymphadenopathy. 3. Healing fractures in the right lower thorax. Discharge Plan Discharge Attending physician on discharge: Hector Duarte Consulting providers: Julian Hopkins Discharging Clinician: Hector Duarte Anticipated Discharge Date/Time: 12/18/24 17:25 Patient Disposition: Home Activity: as tolerated Diet: as tolerated and heart healthy Discharge Instructions: Patient follow-up with her primary care team in [facility]. She has a cutting machine tender helper and at this time and as per he will not send serologies for autoimmune disease. She will need serial CT scans and PFTs to assess for progression of this interstitial lung disease as an outpatient Please complete the antibiotic and prednisone. Check blood pressure 1 to 2 times a day. Record and bring into your doctor for review. Call your doctor if your blood pressure is greater than 180/110 or less than 90/45. Walk with cane or other assist device. Take precautions to avoid falls. Rise slowly from a lying or sitting position. Pause before standing or walking. Contact your doctor or call 911 and come to the Emergency Room if you have any type of trauma, lightheadedness with standing or other worrisome symptoms. Avoid NSAIDs (ibuprofen, naproxen, Aleve). Tylenol is safe to take. Follow-up with your primary care provider in 1-2 weeks. Please call for appointment. Follow-up with Cardiology in 2-4 weeks. Please call for an appointment. Thank you for using [facility] for your health care needs. Patient Instructions: Antibiotic Form Patient Language: Congolese Stand Alone Forms: General Discharge Information Follow-up/Referrals: Linnea Rae [Other] Discharge Medications: New prednisone 20 mg Tablet 40 mg PO DAILY@0800 Qty: 5 0RF guaifenesin [Mucus Relief ER] 600 mg Tablet Extended Release 12hr 1,200 mg PO Q12HR Qty: 30 0RF umeclidinium-vilanterol [Anoro Ellipta] 62.5-25 mcg/actuation Blister With Device 1 inh inhalation DAILYRT Qty: 60 0RF amoxicillin-pot clavulanate 875-125 mg tablet 1 tablet PO Q12H Qty: 10 0RF Continued metoprolol succinate 50 mg tablet extended release 24 hr 150 mg PO Q12H tizanidine 4 mg tablet 4 mg PO HS sucralfate 1 gram tablet 1 g PO BID atorvastatin 40 mg tablet 40 mg PO QPM furosemide 20 mg tablet 10 mg PO DAILY buspirone 10 mg tablet 10 mg PO DAILY levothyroxine [Synthroid] 175 mcg tablet 175 mcg PO DAILY losartan 50 mg tablet 50 mg PO BID estradiol 1 mg tablet 1 mg PO DAILY aspirin 81 mg tablet,delayed release (DR/EC) 81 mg PO DAILY hydrochlorothiazide 25 mg tablet 25 mg PO DAILY Date of admission: 12/15/24 21:51 Primary Care Provider: Linnea Rae Admitting Provider: Alexa Swenson Attending physician on admission: Alexa Swenson Condition: Stable
[2024-12-18] MEDS: ATORVASTATIN 40 MG TABLET PO (17:46)
[2024-12-19 15:58] LABS: Pneumococcal Antigen Urine NOT DETECTED
[2024-12-19 18:02] LABS: Legionella pneumophila Ag Ur NOT DETECTED
[2024-12-20 18:57] LABS: Adenovirus DNA Not Detected (Not Detected); Chlamydophila pneumoniae Not Detected (Not Detected); Coronavirus 229E Not Detected (Not Detected); Coronavirus HKU1 Not Detected (Not Detected); Coronavirus NL63 Not Detected (Not Detected); Coronavirus OC43 Not Detected (Not Detected); Human Metapneumovirus Not Detected (Not Detected); Human Parainfluenza Virus 1 Not Detected (Not Detected); Human Parainfluenza Virus 2 Not Detected (Not Detected); Human Parainfluenza Virus 3 Not Detected (Not Detected); Human Parainfluenza Virus 4 Not Detected (Not Detected); Human RSV B Not Detected (Not Detected); Influenza A Not Detected (Not Detected); Influenza B Not Detected (Not Detected); Mycoplasma pneumoniae Not Detected (Not Detected); Rhinovirus/Enterovirus Not Detected (Not Detected)
[2024-12-21 18:58] LABS: Mycoplasma IgM Antibody Titer 145 U/mL
== END 2024-12-18 18:15 | disposition home or self-care (01) ==
LOC: ANHED 21:53 → ANH3MEDSUR 12-16 12:56
PROVIDERS: Emergency Medicine; Internal Medicine; Internal Medicine Pulmonary Disease; Admitting Provider Internal Medicine; Emergency Provider Emergency Medicine; Visit Provider General Practice
DX: J18.9 Pneumonia, unspecified organism (principal); J44.0 Chronic obstructive pulmonary disease with (acute) lower respiratory infection; E03.9 Hypothyroidism, unspecified; E87.1 Hypo-osmolality and hyponatremia; G47.33 Obstructive sleep apnea (adult) (pediatric); F17.290 Nicotine dependence, other tobacco product, uncomplicated; J96.10 Chronic respiratory failure, unspecified whether with hypoxia or hypercapnia; F41.9 Anxiety disorder, unspecified; E78.5 Hyperlipidemia, unspecified; K21.9 Gastro-esophageal reflux disease without esophagitis; M06.9 Rheumatoid arthritis, unspecified; I25.10 Atherosclerotic heart disease of native coronary artery without angina pectoris; I11.0 Hypertensive heart disease with heart failure; I50.9 Heart failure, unspecified; F10.91 Alcohol use, unspecified, in remission; Z20.822 Contact with and (suspected) exposure to COVID-19; Z79.82 Long term (current) use of aspirin; Z79.899 Other long term (current) drug therapy; Z90.49 Acquired absence of other specified parts of digestive tract; Z96.652 Presence of left artificial knee joint
CPT/HCPCS: 36415; 71045; 71250; 80048; 80053; 82103; 82104; 82803; 83605; 83735; 85025; 85027; 86738; 87040; 87070; 87205; 87449; 87633; 87637; 87899; 93005; 94640; 96365; 96366; 96367; 96372; 96375; 99285; A9270; C8929; G0378; J0696; J1100; J1650; J2405; J3475; J7030; J7512; Q9957